=== PATIENT | female | born 1980 | race Caucasian/White ===

== ENCOUNTER 2023-06-03 20:54 | Emergency (ER) | payer OTHER, SELFPAY ==
[2023-06-03 21:11] VITALS: BP 123/87; PULSE 74; RESP 18; TEMP 36.9; O2SAT 100; BMI 31.1
[2023-06-03 22:33] VITALS: BP 115/74
--- NOTE | 2023-06-03 23:07 | ECG_ITS ---
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
--- NOTE | 2023-06-03 23:08 | XR_ITS ---
[facility] [place] [id number] Patient Name: GAL TEJEDA MRN: [id number] date: 1980 Sex: F Assigned Patient Location: ER Current Patient Location: ER Accession/Order Number: [id number] Exam Date: 06/03/2023 23:35 Report Date: 06/04/2023 01:33 At the request of: KELLEY SERRANO Procedure: XR chest 2V XR chest 2V 06/03/2023 11:35 PM EDT CLINICAL INDICATION: Back pain COMPARISON: None. TECHNIQUE: PA and lateral views of the chest. FINDINGS: There are no tubes or implants noted. The cardiomediastinal silhouette and pulmonary vasculature are within normal limits. The lungs are clear. No pneumothorax or pleural effusion. Osseous structures and soft tissues are within normal limits. XR/XR chest 2V IMPRESSION: No acute cardiopulmonary abnormality. Electronically authenticated by: FRENCH SHANE Date: 06/04/2023 01:33
[2023-06-03 23:12] VITALS: PULSE 68; RESP 18
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
[2023-06-03 23:24] LABS: Basophils Percent Auto 0.4 % (0.2-2.0); Eosinophils Absolute Auto 0.1 10^3/uL (0.0-0.7); Eosinophils Percent Auto 1.1 % (0.9-7.0); Hematocrit 38.2 % (36.0-48.0); Hemoglobin 13.2 g/dL (12.0-16.0); Immature Granulocytes Abs Auto 0.01 10^3/uL (0.00-0.03); Immature Granulocytes Pct Auto 0.1 % (0.0-0.5); Lymphocytes Absolute Auto 1.8 10^3/uL (1.2-3.8); Lymphocytes Percent Auto 24.7 % (20.5-60.0); Mean Corpuscular HGB Conc 34.6 g/dL (29.9-35.2); Mean Corpuscular Hemoglobin 33.8 pg (26.7-34.0); Mean Corpuscular Volume 97.7 fL (81.0-99.0); Mean Platelet Volume 8.9 fL (9.5-13.5); Monocytes Absolute Auto 0.5 10^3/uL (0.3-0.8); Monocytes Percent Auto 7.2 % (1.7-12.0); Neutrophils Absolute Auto 4.8 10^3/uL (1.4-6.5); Neutrophils Percent Auto 66.5 % (43.0-75.0); Platelet Count 287 10^3/uL (150-450); Red Blood Count 3.91 10^6/uL (4.20-5.40); Red Cell Distribution Width 12.3 % (11.0-15.0); White Blood Count 7.2 10^3/uL (4.0-11.0)
[2023-06-03 23:41] LABS: Alanine Aminotransferase 26 U/L (14-59); Albumin Globulin Ratio 1.3; Albumin Level 3.9 g/dL (3.4-5.0); Alkaline Phosphatase 107 U/L (46-116); Anion Gap 13.1; Aspartate Amino Transferase 9 U/L (15-37); BUN Creatinine Ratio 13.6; Bilirubin Total 0.5 mg/dL (0.2-1.0); Calcium 8.9 mg/dL (8.5-10.1); Carbon Dioxide 26.3 mmol/L (21.0-32.0); Chloride 103 mmol/L (98-107); Estimated GFR (African America >60 (>=60); Estimated GFR (Non-African Ame 58 (>=60); Globulin 3.1 g/dL; Glucose 132 mg/dL (74-106); Magnesium 2.2 mg/dL (1.8-2.4); Potassium 3.4 mmol/L (3.5-5.1); Sodium 139 mmol/L (136-145); Troponin I High Sensitivity <4.0 pg/mL (4.0-51.3)
[2023-06-03] MEDS: KETOROLAC TROMETHAMINE 30 MG/ML VIAL IVP (23:56)
[2023-06-03] MEDS: 0.9 % SODIUM CHLORIDE 1,000 ML 999 ML IV (23:57)
[2023-06-04 00:12] LABS: D Dimer 0.71 mg/L FEU (<=0.59)
--- NOTE | 2023-06-04 00:13 | CT_ITS ---
[address] [address] Patient Name: GAL TEJEDA MRN: [id number] date: 1980 Sex: F Assigned Patient Location: ER Current Patient Location: ED.MAIN Accession/Order Number: [id number] Exam Date: 06/04/2023 00:33 Report Date: 06/04/2023 02:56 At the request of: KELLEY SERRANO Procedure: CT angio chest EXAM: CT angio chest HISTORY: cp/elevated dimer COMPARISON: Chest x-ray 06/03/2023 TECHNIQUE: Multiple axial views CT angiogram chest after administration of 100 mL Omnipaque 350 IV contrast. Coronal sagittal reformats. MIP and/or similar series performed. 3-D reconstruction of the vasculature. FINDINGS: No evidence for acute pulmonary embolism. Mid ascending thoracic aorta measuring 3.2 cm diameter. No aortic dissection. No enlarged heart size or large pericardial effusion. Central airway is patent. No lung consolidation, large pleural effusions, pneumothorax, or suspicious lung infiltrates. Small hiatal hernia with mild gastroesophageal junction wall thickening. No extraluminal free fluid or free air. No acute bony abnormality. CT/CT angio chest IMPRESSION: No evidence for acute pulmonary embolism. No large pericardial effusion, pleural effusion, or suspicious lung infiltrates. Small hiatal hernia with mild gastroesophageal junction wall thickening. Correlate clinically for sequela of reflux or gastroesophageal wall inflammation. No extraluminal free fluid or free air. Electronically authenticated by: APOORVA MENDEZ Date: 06/04/2023 02:56
[2023-06-04 02:14] VITALS: BP 100/71; O2SAT 99
== END 2023-06-04 03:32 | disposition home or self-care (01) ==
PROVIDERS: Emergency Provider Emergency Medicine
DX: M54.6 Pain in thoracic spine (principal); E86.0 Dehydration; L55.9 Sunburn, unspecified; Z79.899 Other long term (current) drug therapy
CPT/HCPCS: 36415; 71046; 71275; 80053; 83690; 83735; 84484; 85025; 85378; 93005; 96360; 96361; 99285; Q9967

== ENCOUNTER 2023-08-10 19:02 | Emergency (ER) | payer OTHER, SELFPAY ==
[2023-08-10 19:16] VITALS: BP 128/80; PULSE 82; RESP 16; TEMP 36.8; O2SAT 99; BMI 30.1
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
[2023-08-10] MEDS: FLUORESCEIN SODIUM 1 MG STRIP OP (20:20)
[2023-08-10] MEDS: ERYTHROMYCIN OP OINT 0.5% 1 GM TUBE OP (21:06)
== END 2023-08-10 21:15 | disposition home or self-care (01) ==
PROVIDERS: Emergency Provider Emergency Medicine
DX: S05.01XA Injury of conjunctiva and corneal abrasion without foreign body, right eye, initial encounter (principal); Y04.2XXA Assault by strike against or bumped into by another person, initial encounter
CPT/HCPCS: 99283

== ENCOUNTER 2024-01-02 09:46 | Emergency (ER) | payer OTHER, SELFPAY ==
[2024-01-02 09:48] VITALS: BP 110/74; PULSE 65; RESP 16; TEMP 36.8; O2SAT 98; BMI 25.6
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
--- OUTSIDE RECORDS SUMMARY | 2024-01-02 10:14 | XMS_ITS | CCD ---
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 34.0-46.4 [facility] Comment on above: Order Comment: Reaso n for Exam Screening for heart disease Performed By: #### C BC, TSH3 wRFLX, CMP, LIPID ####[address] Hemoglobin (Bld) [Mass/Vol] 12.9 g/dL Normal 11.8-15.4 [facility] Comment on above: Order Comment: Reaso n for Exam Screening for heart disease Performed By: #### C BC, TSH3 wRFLX, CMP, LIPID ####[address] Lymphocytes (Bld) [#/Vol] 1.0 10*3/uL Normal 1.00-4.8 [facility] Comment on above: Order Comment: Reaso n for Exam Screening for heart disease Performed By: #### C BC, TSH3 wRFLX, CMP, LIPID ####[address] Lymphocytes/100 WBC (Bld) 29.1 % Normal . [facility] Comment on above: Order Comment: Reaso n for Exam Screening for heart disease Performed By: #### C BC, TSH3 wRFLX, CMP, LIPID ####[place] [id number] [facility] MCH (RBC) [Entitic mass] 33.5 pg Normal 24.7-34.3 [facility] Comment on above: Order Comment: Reaso n for Exam Screening for heart disease Performed By: #### C BC, TSH3 wRFLX, CMP, LIPID ####[place] [id number] [facility] MCV (RBC) [Entitic vol] 98.9 fL Normal 80-100 [facility] Comment on above: Order Comment: Reaso n for Exam Screening for heart disease Performed By: #### C BC, TSH3 wRFLX, CMP, LIPID ####[facility] [place] [id number] [facility] Mean Corpuscular HGB Conc 33.8 g/dL Normal 32.0-35.0 [facility] Comment on above: Order Comment: Reaso n for Exam Screening for heart disease Performed By: #### C BC, TSH3 wRFLX, CMP, LIPID ####[place] [address] [place] [address] [facility] Monocytes (Bld) [#/Vol] 0.3 10*3/uL Normal 0.0-0.8 [facility] Comment on above: Order Comment: Reaso n for Exam Screening for heart disease Performed By: #### C BC, TSH3 wRFLX, CMP, LIPID ####[place] [address] [place] [id number] [facility] Monocytes/100 WBC (Bld) 7.3 % Normal . [facility] Comment on above: Order Comment: Reaso n for Exam Screening for heart disease Performed By: #### C BC, TSH3 wRFLX, CMP, LIPID ####[place] [id number] [facility] Neutrophils (Bld) [#/Vol] 2.2 10*3/uL Normal 1.8-7.7 [facility] Comment on above: Order Comment: Reaso n for Exam Screening for heart disease Performed By: #### C BC, TSH3 wRFLX, CMP, LIPID ####[place] [address] [place] [phone] [facility] Neutrophils/100 WBC (Bld) 60.8 % Normal . [facility] Comment on above: Order Comment: Reaso n for Exam Screening for heart disease Performed By: #### C BC, TSH3 wRFLX, CMP, LIPID ####[place] [id number] [place] NRBC% 0.0 /100{WBC} Normal 0-0.5 [facility] Comment on above: Order Comment: Reaso n for Exam Screening for heart disease Performed By: #### C BC, TSH3 wRFLX, CMP, LIPID ####[place] [address] [place] [address] [facility] Platelet mean volume (Bld) [Entitic vol] 8.1 fL Normal 6.3-10.7 [facility] Comment on above: Order Comment: Reaso n for Exam Screening for heart disease Performed By: #### C BC, TSH3 wRFLX, CMP, LIPID ####[place] [address] [place] [address] [facility] Platelets (Bld) [#/Vol] 292 10*3/uL Normal 150-450 [facility] Comment on above: Order Comment: Reaso n for Exam Screening for heart disease Performed By: #### C BC, TSH3 wRFLX, CMP, LIPID ####[place] [id number] [facility] RBC (Bld) [#/Vol] 3.86 10*6/uL Normal 3.60-5.00 [facility] Comment on above: Order Comment: Reaso n for Exam Screening for heart disease Performed By: #### C BC, TSH3 wRFLX, CMP, LIPID ####[address] [address] [facility] WBC (Bld) [#/Vol] 3.6 10*3/uL Low 3.8-11.6 [facility] Comment on above: Order Comment: Reaso n for Exam Screening for heart disease Performed By: #### C BC, TSH3 wRFLX, CMP, LIPID ####[place] [address] [place] [address] [facility] Comprehensive Metabolic Pane ryan 02-24-2023 Albumin [Mass/Vol] 4.0 g/dL Normal 3.5-5.7 [facility] Comment on above: Order Comment: Reaso n for Exam Screening for heart disease Reason for Exam Annual physical exam;Screening for heart disease disease;Anxiety Performed By: #### C BC, TSH3 wRFLX, CMP, LIPID ####[place] [address] [place] [address] [facility] Albumin/Globulin [Mass ratio] 1.7 {ratio} Normal [facility] Comment on above: Order Comment: Reaso n for Exam Screening for heart disease Reason for Exam Annual physical exam;Screening for heart disease disease;Anxiety Performed By: #### C BC, TSH3 wRFLX, CMP, LIPID ####[place] [address] [place] [address] [facility] ALP [Catalytic activity/Vol] 83 U/L Normal 34-104 [facility] Comment on above: Order Comment: Reaso n for Exam Screening for heart disease Reason for Exam Annual physical exam;Screening for heart disease disease;Anxiety Performed By: #### C BC, TSH3 wRFLX, CMP, LIPID ####[address] [address] [facility] ALT [Catalytic activity/Vol] 20 U/L Normal 7-52 [facility] Comment on above: Order Comment: Reaso n for Exam Screening for heart disease Reason for Exam Annual physical exam;Screening for heart disease disease;Anxiety Performed By: #### C BC, TSH3 wRFLX, CMP, LIPID ####[address] [address] [facility] Anion gap [Moles/Vol] 10.8 mmol/L Normal 6.0-15.0 [facility] Comment on above: Order Comment: Reaso n for Exam Screening for heart disease Reason for Exam Annual physical exam;Screening for heart disease disease;Anxiety Performed By: #### C BC, TSH3 wRFLX, CMP, LIPID ####[address] [address] [facility] AST [Catalytic activity/Vol] 15 U/L Normal 13-39 [facility] Comment on above: Order Comment: Reaso n for Exam Screening for heart disease Reason for Exam Annual physical exam;Screening for heart disease disease;Anxiety Performed By: #### C BC, TSH3 wRFLX, CMP, LIPID ####[address] [address] [facility] Bilirubin [Mass/Vol] 0.7 mg/dL Normal 0.3-1.0 [facility] Comment on above: Order Comment: Reaso n for Exam Screening for heart disease Reason for Exam Annual physical exam;Screening for heart disease disease;Anxiety Performed By: #### C BC, TSH3 wRFLX, CMP, LIPID ####[place] [address] [place] [address] [facility] Calcium [Mass/Vol] 8.6 mg/dL Normal 8.6-10.3 [facility] Comment on above: Order Comment: Reaso n for Exam Screening for heart disease Reason for Exam Annual physical exam;Screening for heart disease disease;Anxiety Performed By: #### C BC, TSH3 wRFLX, CMP, LIPID ####[place] [address] [place] [address] [facility] Chloride [Moles/Vol] 105 mmol/L Normal 98-107 [facility] Comment on above: Order Comment: Reaso n for Exam Screening for heart disease Reason for Exam Annual physical exam;Screening for heart disease disease;Anxiety Performed By: #### C BC, TSH3 wRFLX, CMP, LIPID ####[address] [address] [facility] CO2 [Moles/Vol] 25.4 mmol/L Normal 21.0-31.0 [facility] Comment on above: Order Comment: Reaso n for Exam Screening for heart disease Reason for Exam Annual physical exam;Screening for heart disease disease;Anxiety Performed By: #### C BC, TSH3 wRFLX, CMP, LIPID ####[address] [address] [facility] Creatinine [Mass/Vol] 0.96 mg/dL Normal 0.60-1.20 [facility] Comment on above: Order Comment: Reaso n for Exam Screening for heart disease Reason for Exam Annual physical exam;Screening for heart disease disease;Anxiety Performed By: #### C BC, TSH3 wRFLX, CMP, LIPID ####[address] [address] [facility] GFR/1.73 sq M.predicted MDRD (S/P/Bld) [Vol rate/Area] mL/min/{1.73_m2} Normal [facility] Comment on above: Order Comment: Reaso n for Exam Screening for heart disease Reason for Exam Annual physical exam;Screening for heart disease disease;Anxiety Performed By: #### C BC, TSH3 wRFLX, CMP, LIPID ####[facility] [place] [address] [facility] Globulin (S) [Mass/Vol] 2.3 g/dL Normal [facility] Comment on above: Order Comment: Reaso n for Exam Screening for heart disease Reason for Exam Annual physical exam;Screening for heart disease disease;Anxiety Performed By: #### C BC, TSH3 wRFLX, CMP, LIPID ####[place] [address] [place] [address] [facility] Glucose [Mass/Vol] 84 mg/dL Normal 70-100 [facility] Comment on above: Order Comment: Reaso n for Exam Screening for heart disease Reason for Exam Annual physical exam;Screening for heart disease disease;Anxiety Result Comment: [facility] Glucose Reference Range is dependent on time and content of last meal. Glucose of more than 200 mg/dL in a nonstressed, ambulatory subject supports the diagnosis of Diabetes Mellitus. ADA recommended reference range Performed By: #### C BC, TSH3 wRFLX, CMP, LIPID ####[place] [address] [place] [address] [facility] Potassium [Moles/Vol] 4.2 mmol/L Normal 3.5-5.1 [facility] Comment on above: Order Comment: Reaso n for Exam Screening for heart disease Reason for Exam Annual physical exam;Screening for heart disease disease;Anxiety Performed By: #### C BC, TSH3 wRFLX, CMP, LIPID ####[place] [address] [place] [address] [facility] Protein [Mass/Vol] 6.3 g/dL Low 6.4-8.9 [facility] Comment on above: Order Comment: Reaso n for Exam Screening for heart disease Reason for Exam Annual physical exam;Screening for heart disease disease;Anxiety Performed By: #### C BC, TSH3 wRFLX, CMP, LIPID ####[facility] [place] [id number] [facility] Sodium [Moles/Vol] 137 mmol/L Normal 136-145 [facility] Comment on above: Order Comment: Reaso n for Exam Screening for heart disease Reason for Exam Annual physical exam;Screening for heart disease disease;Anxiety Performed By: #### C BC, TSH3 wRFLX, CMP, LIPID ####[facility] [place] [id number] [facility] Urea nitrogen [Mass/Vol] 19 mg/dL Normal 7-25 [facility] Comment on above: Order Comment: Reaso n for Exam Screening for heart disease Reason for Exam Annual physical exam;Screening for heart disease disease;Anxiety Performed By: #### C BC, TSH3 wRFLX, CMP, LIPID ####[place] [id number] Creatinine [Mass/volume] in Serum or PlasmaOrdered By: Aris Son on 02-24-2023 Creatinine [Mass/Vol] 0.96 mg/dL 0.60-1.20 [facility] Eosinophils Auto (Bld) [#/Vo l]Ordered By: Aris Son on 02-24-2023 Eosinophils (Bld) [#/Vol] 0.1 10*3/uL 0.0-0.45 [facility] Eosinophils/100 WBC Auto (Bl d)Ordered By: Aris Son on 02-24-2023 Eosinophils/100 WBC (Bld) 2.1 % . [facility] Erythrocyte distribution wid th Auto (RBC) [Ratio]Ordered By: Aris Son on 02-24-2023 Erythrocyte distribution width (RBC) [Ratio] 13.4 % 11.9-15.3 [facility] Globulin Calc (S) [Mass/Vol] Ordered By: Aris Son on 02-24-2023 Globulin (S) [Mass/Vol] 2.3 g/dL [facility] Glucose [Mass/volume] in Ser um or PlasmaOrdered By: Aris Son on 02-24-2023 Glucose [Mass/Vol] 84 mg/dL 70-100 [facility] Comment on above: ADA recommended refe rence rangeRandom Glucose Reference Range is dependent on time and content of last meal. Glucose of more than 200 mg/dL in a nonstressed, ambulatory subject supports the diagnosis of Diabetes Mellitus. Hematocrit Auto (Bld) [Volum e fraction]Ordered By: Aris Son on 02-24-2023 Hematocrit (Bld) [Volume fraction] 38.2 % 34.0-46.4 [facility] Hemoglobin [Mass/volume] in BloodOrdered By: Aris Son on 02-24-2023 Hemoglobin (Bld) [Mass/Vol] 12.9 g/dL 11.8-15.4 [facility] Leukocytes [#/volume] correc debi for nucleated erythrocytes in Blood by Automated counOrdered By: Aris Son on 02-24-2023 WBC corrected for nucl RBC Auto (Bld) [#/Vol] 3.6 10*3/uL 3.8-11.6 [facility] Lipid Panelon 02-24-2023 Cholesterol [Mass/Vol] 161 mg/dL Normal 140-200 [facility] Comment on above: Order Comment: Reaso n for Exam Screening for heart disease Reason for Exam Annual physical exam;Screening for heart disease disease;Anxiety Result Comment: Chol less than 200 mg/dl low risk Chol 201-239 mg/dl borderline risk Chol 240 mg/dl and greater high risk Performed By: #### C BC, TSH3 wRFLX, CMP, LIPID ####[facility] [id number] [place] [id number] [facility] Cholesterol in HDL [Mass/Vol] 56 mg/dL Normal 35-85 [facility] Comment on above: Order Comment: Reaso n for Exam Screening for heart disease Reason for Exam Annual physical exam;Screening for heart disease disease;Anxiety Result Comment: HDL CHOL ATP-III CLASSIFICATION Cardiovascular Risk HDL > or equal to 60 mg/dL LOW HDL < 40 mg/dL HIGH Performed By: #### C BC, TSH3 wRFLX, CMP, LIPID ####[facility] [id number] [place] [id number] [facility] Cholesterol.total/Choles terol in HDL [Mass ratio] 2.9 {ratio} Normal <5.0 [facility] Comment on above: Order Comment: Reaso n for Exam Screening for heart disease Reason for Exam Annual physical exam;Screening for heart disease disease;Anxiety Performed By: #### C BC, TSH3 wRFLX, CMP, LIPID ####[facility] [id number] LDL Cholesterol,Calculated 85 mg/dL Normal 0-100 [facility] Comment on above: Order Comment: Reaso n for Exam Screening for heart disease Reason for Exam Annual physical exam;Screening for heart disease disease;Anxiety Result Comment: LDL ATP III CLASSIFICATION LDL less than 100 mg/dL Optimal LDL 100-129 mg/dL Near or above optimal LDL 130-159 mg/dL Borderline high LDL 160-189 mg/dL High LDL greater than 189 mg/dL Very high Performed By: #### C BC, TSH3 wRFLX, CMP, LIPID ####[place] [id number] Triglyceride w/Reflex 99 mg/dL Normal 0-149 [facility] Comment on above: Order Comment: Reaso n for Exam Screening for heart disease Reason for Exam Annual physical exam;Screening for heart disease disease;Anxiety Result Comment: TRIG ATP III CLASSIFICATION TRIG less than 150 mg/dL Normal TRIG 150-199 mg/dL Borderline high TRIG 200-500 mg/dL High TRIG greater than 500 mg/dL Very high Standard traceable to the Center for Disease Conrtrol and Prevention (CDC) test method. Performed By: #### C BC, TSH3 wRFLX, CMP, LIPID ####[facility] [id number] VLDL CHOLESTEROL 19 mg/dL Normal [facility] Comment on above: Order Comment: Reaso n for Exam Screening for heart disease Reason for Exam Annual physical exam;Screening for heart disease disease;Anxiety Performed By: #### C BC, TSH3 wRFLX, CMP, LIPID ####[facility] [id number] Lymphocytes Auto (Bld) [#/Vo l]Ordered By: Aris Son on 02-24-2023 Lymphocytes (Bld) [#/Vol] 1.0 10*3/uL 1.00-4.8 [facility] Lymphocytes/100 WBC Auto (Bl d)Ordered By: Aris Son on 02-24-2023 Lymphocytes/100 WBC (Bld) 29.1 % . [facility] MCH Auto (RBC) [Entitic mass ]Ordered By: Aris Son on 02-24-2023 MCH (RBC) [Entitic mass] 33.5 pg 24.7-34.3 [facility] MCHC Auto (RBC) [Mass/Vol]Or dered By: Aris Son on 02-24-2023 MCHC (RBC) [Mass/Vol] 33.8 g/dL 32.0-35.0 [facility] MCV Auto (RBC) [Entitic vol] Ordered By: Aris Son on 02-24-2023 MCV (RBC) [Entitic vol] 98.9 fL 80-100 [facility] Monocytes Auto (Bld) [#/Vol] Ordered By: Aris Son on 02-24-2023 Monocytes (Bld) [#/Vol] 0.3 10*3/uL 0.0-0.8 [facility] Monocytes/100 WBC Auto (Bld) Ordered By: Aris Son on 02-24-2023 Monocytes/100 WBC (Bld) 7.3 % . [facility] Neutrophils Auto (Bld) [#/Vo l]Ordered By: Aris Son on 02-24-2023 Neutrophils (Bld) [#/Vol] 2.2 10*3/uL 1.8-7.7 [facility] Neutrophils/100 WBC Auto (Bl d)Ordered By: rAis Son on 02-24-2023 Neutrophils/100 WBC (Bld) 60.8 % . [facility] No Panel InformationOrdered By: Aris Son on 02-24-2023 Estimated GFR (CKD-EPI) > 60.0 mL/Min [facility] Creatinine Clearance (Chem N/A [facility] Nucleated erythrocytes [Pres ence] in Blood by Automated countOrdered By: Aris Son on 02-24-2023 Nucleated RBC Auto Ql (Bld) 0.0 /100{WBC} 0-0.5 [facility] Platelet mean volume Auto (B ld) [Entitic vol]Ordered By: Aris Son on 02-24-2023 Platelet mean volume (Bld) [Entitic vol] 8.1 fL 6.3-10.7 [facility] Platelets Auto (Bld) [#/Vol] Ordered By: Aris Son on 02-24-2023 Platelets (Bld) [#/Vol] 292 10*3/uL 150-450 [facility] Potassium [Moles/volume] in Serum or PlasmaOrdered By: Aris Son on 02-24-2023 Potassium [Moles/Vol] 4.2 mmol/L 3.5-5.1 [facility] Protein [Mass/volume] in Ser um or PlasmaOrdered By: Aris Son on 02-24-2023 Protein [Mass/Vol] 6.3 g/dL 6.4-8.9 [facility] RBC Auto (Bld) [#/Vol]Ordere d By: Aris Son on 02-24-2023 RBC (Bld) [#/Vol] 3.86 10*6/uL 3.60-5.00 [facility] Serum or plasma albumin/glob ulin mass ratioOrdered By: Aris Son on 02-24-2023 Albumin/Globulin [Mass ratio] 1.7 {ratio} [facility] Serum or plasma anion gap de terminationOrdered By: Aris Son on 02-24-2023 Anion gap [Moles/Vol] 10.8 mmol/L 6.0-15.0 [facility] Serum or plasma high density lipoprotein (HDL) cholesterol measurementOrdered By: Aris Son on 02-24-2023 Cholesterol in HDL [Mass/Vol] 56 mg/dL 35-85 [facility] Comment on above: HDL CHOL ATP-III CLA SSIFICATION Cardiovascular RiskHDL > or equal to 60 mg/dL LOWHDL < 40 mg/dL HIGH Serum or plasma total choles terol/high density lipoprotein (HDL) cholesterol mass ratOrdered By: Aris Son on 02-24-2023 Cholesterol.total/Choles terol in HDL [Mass ratio] 2.9 {ratio} <5.0 [facility] Sodium [Moles/volume] in Ser um or PlasmaOrdered By: Aris Son on 02-24-2023 Sodium [Moles/Vol] 137 mmol/L 136-145 [facility] Thyroid Stim Hormone w/Rflxo n 02-24-2023 Thyroid Stim Hormone w/Rflx 1.70 u[iU]/mL Normal 0.45-5.33 [facility] Comment on above: Order Comment: Reaso n for Exam Screening for heart disease Reason for Exam Annual physical exam;Screening for heart disease disease;Anxiety Result Comment: PERF ORMED BY: [facility] [address] [place] [id number] PATHOLOGIST PUBLIC [employer] WORKER MARNIE GREGORY M.D. Performed By: #### C BC, TSH3 wRFLX, CMP, LIPID ####[facility] [id number] [place] [address] [facility] Thyrotropin [Units/volume] i n Serum or PlasmaOrdered By: Aris Son on 02-24-2023 TSH Qn 1.70 m[IU]/L 0.45-5.33 [facility] Triglyceride [Mass/volume] i n Serum or PlasmaOrdered By: Aris Son on 02-24-2023 Triglyceride [Mass/Vol] 99 mg/dL 0-149 [facility] Comment on above: TRIG ATP III CLASSIF ICATIONTRIG less than 150 mg/dL NormalTRIG 150-199 mg/dL Borderline highTRIG 200-500 mg/dL High TRIG greater than 500 mg/dL Very highStandard traceable to the Center for Disease Conrtrol and Prevention (CDC) test method. Urea nitrogen [Mass/volume] in Serum or PlasmaOrdered By: Aris Son on 02-24-2023 Urea nitrogen [Mass/Vol] 19 mg/dL 7- [facility] WBC Auto (Bld) [#/Vol]Ordere d By: Aris Son on 02-24-2023 WBC (Bld) [#/Vol] 3.6 10*3/uL 3.8-11.6 [facility] COVID-19 PCRon 08-08-2020 SARS-CoV-2, JULIO Not Detected Normal Not Detected [facility] Comment on above: Result Comment: This nucleic acid amplification test was developed and its performance characteristics determined by [employer]. Nucleic acid amplification tests include PCR and TMA. This test has not been FDA cleared or approved. This test has been authorized by FDA under an Emergency Use Authorization (EUA). This test is only authorized for the duration of time the declaration that circumstances exist justifying the authorization of the emergency use of in vitro diagnostic tests for detection of SARS-CoV-2 virus and/or diagnosis of COVID-19 infection under section 564(b)(1) of the Act, 21 U.S.C. 360bbb-3(b) (1), unless the authorization is terminated or revoked sooner. When diagnostic testing is negative, the possibility of a false negative result should be considered in the context of a patient's recent exposures and the presence of clinical signs and symptoms consistent with COVID-19. An individual without symptoms of COVID-19 and who is not shedding SARS-CoV-2 virus would expect to have a negative (not detected) result in this assay. Performed By: #### C VDPCR #### [facility] [address] [place] [address] Benito Christopher HEP B SURFACE ANTIGEN SCREEN on 07-29-2020 HBsAg Screen Negative Normal Negative [facility] Comment on above: Performed By: #### H BSANS #### [facility] [address] [place] [address] Benito Christopher HEPATITIS B SURFACE ANTIBODY , QUANTon 04-18-2020 Hepatitis B Surf AB Quant 5.5 mIU/mL Critically low Immunity>9.9 [facility] Comment on above: Result Comment: Stat us of Immunity Anti-HBs Level Inconsistent with Immunity 0.0 - 9.9 Consistent with Immunity >9.9 Performed By: #### H EPBSRF #### [facility] [address] [place] [address] Benito Christopher SLEEP STUDYon 01-01-2020 SLEEP STUDY SLEEP STUDY Ordering Physician: Dr. Castelan Procedure Date: 01-01-20 CLINICAL HISTORY: This is a 39 year-old female who is 62 tall, weighs 165 pounds with a body mass index of 30.2, who was referred for a home sleep study due to snoring, fatigue, witnessed episodes of apnea, and daytime somnolence. RECORDING TIME: The total recording time was 8 hours and 24 minutes, total evaluation time was 8 hours and 12 minutes. COMPREHENSIVE VENTILATORY MONITORING: The patient had 10 apneas and 45 hypopneas with an apnea/hypopnea index of 6.7 per hour. The average oxygenation while was 95% with a minimum oxygen saturation down to 82%. SNORING DATA: The patient had 105 snoring occurrences. EKG MONITORING: The mean heart rate during wakefulness was 71 bpm, minimum pulse rate was 50 bpm, maximum pulse rate was 101 bpm. IMPRESSION: 1. This patient does meet criteria for a very mild obstructive sleep apnea and may benefit from CPAP titration vs AutoPap therapy vs aggressive weight loss measures. 2. This patient would benefit from treatment of any other coexisting medical condition including obesity, insomnia, anxiety or depression. 3. Please correlate clinically. Normal [facility] Vital Signs Date Time Vital Sign Value Performing Clinician Facility 11-13-2023 09:00-0500 Body height 157.48 cm Devyn Daniels Other [facility] Other 11-13-2023 09:00-0500 Body mass index (BMI) [Ratio] 31.09 kg/m2 Devyn Daniels Other [facility] Other 11-13-2023 09:00-0500 Body temperature 97.1 [degF] Devyn Daniels Other [facility] Other 11-13-2023 09:00-0500 Body weight 77.11 kg Devyn Daniels Other [facility] Other 11-13-2023 09:00-0500 Diastolic blood pressure 62 mm[Hg] Devyn Daniels Other [facility] Other 11-13-2023 09:00-0500 SaO2% (BldA) [Mass fraction] 98 % Devyn Daniels Other [facility] Other 11-13-2023 09:00-0500 Systolic blood pressure 100 mm[Hg] Devyn Buestevanrer Other [facility] Other 08-01-2023 09:15-0400 Body height 157.48 cm Devyn Alvarezrer Other [facility] Other 08-01-2023 09:15-0400 Body mass index (BMI) [Ratio] 31.09 kg/m2 Devyn Alvarezrer Other [facility] Other 08-01-2023 09:15-0400 Body temperature 97.3 [degF] Devyn Rodriguezestevanrer Other [facility] Other 08-01-2023 09:15-0400 Body weight 77.11 kg Devyn Alvarezrelorena Other [facility] Other 08-01-2023 09:15-0400 Diastolic blood pressure 68 mm[Hg] Devyn Buehrer Other [facility] Other 08-01-2023 09:15-0400 SaO2% (BldA) [Mass fraction] 99 % Devyn Alvarezrer Other [facility] Other 08-01-2023 09:15-0400 Systolic blood pressure 114 mm[Hg] Devyn Buehrer Other [facility] Other Encounters Encounter Date Encounter Type Care Provider Facility Start: 12-20-2023 End: 12-20-2023 ambulatory Devyn Daniels Facility:[facility] Start: 12-15-2023 End: 12-15-2023 Emergency department patient visit Luiz Farrell Facility:[facility] Start: 11-13-2023 End: 11-13-2023 ambulatory Devyn Daniels Other [facility] Other Start: 11-13-2023 Office outpatient vi sit 25 minutes Devyn Daniels [facility] V[facility] Surgery Start: 10-10-2023 End: 10-10-2023 ambulatory Devyn Daniels Facility:[facility] Start: 10-10-2023 End: 10-10-2023 ambulatory Services [facility] Work Phone: [facility] Work Phone: Start: 10-10-2023 End: 10-10-2023 Patient encounter procedure Services [facility] Work Phone: [facility]-Ultrasound [facility] Start: 10-06-2023 (EVLT) EVLT saphenou s vein ablation Devyn Franciscolorena [facility] Vascular Surgery Start: 10-06-2023 End: 10-06-2023 ambulatory Devyn Daniels Other [facility] Other Start: 08-01-2023 End: 08-01-2023 ambulatory Devyn Daniels Other [facility] Other Start: 08-01-2023 Office outpatient vi sit 25 minutes Devyn Franciscolorena [facility] Vascular Surgery Start: 07-27-2023 End: 07-27-2023 ambulatory Lisset Orellana Facility:[facility] Start: 07-27-2023 End: 07-27-2023 ambulatory Services [facility] Work Phone: [facility] Work Phone: Start: 07-27-2023 End: 07-27-2023 Patient encounter procedure Services Family [facility] Work Phone: [facility]-Ultrasound [facility] [place] Work Phone: Start: 02-24-2023 End: 02-24-2023 ambulatory Ivan Guerrero Facility:[facility] Start: 02-24-2023 End: 02-24-2023 ambulatory Services [employer] Work Phone: [facility] Work Phone: Start: 02-24-2023 End: 02-24-2023 Departed Referred Services [employer] Work Phone: [facility] Start: 12-14-2020 Patient encounter procedure CARMELO HARDING Facility:[facility] Start: 08-07-2020 End: 08-08-2020 Patient encounter procedure DOCTOR MISC Facility:[facility] Start: 07-28-2020 End: 07-28-2020 Patient encounter procedure CARMELO HARDING Facility:[facility] Start: 04-16-2020 End: 04-16-2020 Patient encounter procedure DOCTOR MISC Facility:[facility] Start: 01-01-2020 End: 01-02-2020 Patient encounter procedure DELGADO CARLOS Facility:[facility] Start: 07-13-2004 Evaluation and management of inpatient Services [employer] Work Phone: [facility] Work Phone: Procedures Date Procedure Procedure Detail Performing Clinician Start: 07-27-2023 Duplex scan of lower limb veins Services [facility] [employer] Phone: Plan of Treatment Date Care Activity Detail Author Start: 10-10-2023 Duplex scan of lower limb veins US venous duplex [facility] Start: 10-10-2023 US Lower extremity v ein - left [facility] Start: 07-27-2023 Duplex scan of lower limb veins US venous duplex LE [facility] Start: 07-27-2023 US Lower extremity v ein - bilateral [facility] Payers Date Payer Category Payer Self-pay [id number] 2023 Unknown [id number] 1980 Unknown [id number] 2.16.84 [id number] 1980 Unknown [id number] 2.16.84 [id number] 1980 Unknown [id number] 2.16.84 [id number] 1980 Unknown [id number] 2.16.84 [id number] 1980 Unknown [id number] 2.16.84 [id number] 1959 Self-pay [id number] 1959 Unknown [id number] Unknown MMO [id number] Unknown [employer] [id number] Unknown [id number] 2.16.8 [id number] Unknown [id number] 2.16.8 [id number] Unknown [id number] 2.16.8 [id number] Unknown [id number] 2.16.8 [id number] Unknown [id number] 2.16.8 [id number] Social History Date Type Detail Facility Start: 01-17-2019 End: 01-17-2019 Tobacco smoking status NVIS Ex-smoker (finding) [facility] Start: 1980 Sex Assigned At Female F [facility] Sex Assigned At Sex Assigned At Bir th [facility] Other Evaluation note 11-13-2023 Note Date & Type Note Facility 11-13-2023 Evaluation note Encounter Date Diagnosis Assessment Notes Oct, Symptomatic varicose veins of both lower extremities (ICD-10 - I83.893) Oct, Other Symptomatic varicose veins She had a good outcome after closure of her left greater saphenous vein. We will proceed with laser ablation of the right greater saphenous vein. Following that she will likely require some sessions of sclerotherapy for the venous congestion present at both medial ankles. She understands and agrees with that plan. [facility] Other Evaluation note 08-01-2023 Note Date & Type Note Facility 08-01-2023 Evaluation note Encounter Date Diagnosis Assessment Notes Jul, Varicose veins of bilateral lower extremities with other complications (ICD-10 - I83.893) Jul, Other Bilateral venous insufficiency with painful varicose veins We discussed options for management in detail. We will begin with a left endovenous laser ablation for symptom relief of her severely incompetent left greater saphenous vein. If she does well with that side we will treat the right saphenous vein in a similar fashion. It is quite likely that she will require sclerotherapy for the extensive secondary varicosities along the pretibial areas bilaterally. [facility] Other Evaluation note Note Date & Type Note Facility Evaluation note No assessment information availa [facility] Work Phone: Evaluation note Note Date & Type Note Facility Evaluation note No Information [employer] Other History general Narrative - Reported Note Date & Type Note Facility History general Narrative - Reported Type Medical History Migraine Medical History Depression Hospitalization History child Hospitalization History DEPRESSION AT [facility] 2019 [facility] Other Summary Purpose Family History No Family History Records FoundNo Family History Records Found Advance Directives No Advanced Directives Records Found Advance Directive Response Recorded Date/ Time Advance Directives No January 16 11:38am Advance Directive Response Recorded Date/ Time Advance Directives No January 16 10:38am Chief Complaint and Reason for Visit Chief Complaint ^Iup Annual physical exam;Screening for heart disease A Chief Complaint ^Iup i83.813 Chief Complaint ^Iup i83.813 i83.812 s/p evlt Additional Source Comments INFORMATION SOURCE (unrecogn ized section and content) DATE CREATED AUTHOR 10/27/2020 [facility] DATE CREATED AUTHOR 'S ORGANIZ ATION 12/31/2023 [facility] Care Teams (unrecognized sec tion and content) Team Status: Active Member Role Status Dates Services [facility] Primary Care Provider Active Team Status: Active Member Role Status Dates Rey Pearl , DO Attending Provider Active Team Status: Inactive Member Role Status Dates [facility] Primary Care Provider Active Ivan Guerrero DO Attending Provider Active Team Status: Inactive Member Role Status Dates [facility] Primary Care Provider Active MARIE Kramer Attending Provider Active Team Status: Inactive Member Role Status Dates [facility] Primary Care Provider Active Devyn Daniels MD Attending Provider Active Goals (unrecognized section and content) Goals may be documented in a n alternate sectionGoals may be documented in an alternate sectionNo InformationGoals may be documented in an alternate sectionNo InformationNo Information REASON FOR VISIT (unrecogniz ed section and content) GO OVER ULTRASOUND DONE AT [facility] 07/27/23, Painful varicose veinsEVLT LEFT LEG FIRST4 WK EVLT, Follow-up varicose veins FOR RECORDS PERTAINING TO PATIENTS WHO ARE OR HAVE BEEN ENROLLED IN A CHEMICAL DEPENDENCY/SUBSTANCEABUSE PROGRAM, SOME INFORMATION MAY BE OMITTED. This clinical summary was aggregated from multiple sources. Caution should be exercised in using it in the provision of clinical care. This summary normalizes information from multiple sources, and as a consequence, information in this document may materially change the coding, format and clinical context of patient data. In addition, data may be omitted in some cases. CLINICAL DECISIONS SHOULD BE BASED ON THE PRIMARY CLINICAL RECORDS. [employer] provides no warranty or guarantee of the accuracy or completeness of information in this document.
[2024-01-02] MEDS: ACETAMINOPHEN 325 MG TABLET 650 MG PO (10:17)
== END 2024-01-02 10:21 | disposition home or self-care (01) ==
PROVIDERS: Emergency Provider Emergency Medicine
DX: S00.83XA Contusion of other part of head, initial encounter (principal); W50.0XXA Accidental hit or strike by another person, initial encounter
CPT/HCPCS: 99282

== ENCOUNTER 2024-01-31 09:46 | Outpatient (RCR) | payer OTHER, SELFPAY | END 2024-03-19 14:56 | disposition home or self-care (01) | LOC: PT 09:46 | PROVIDERS: Visit Provider Nurse Practitioner Family | DX: S09.8XXD Other specified injuries of head, subsequent encounter (principal) | CPT/HCPCS: 97110; 97112; 97140; 97162 ==

== ENCOUNTER 2024-03-27 07:34 | Outpatient (OUT) | payer OTHER, SELFPAY ==
--- NOTE | 2024-03-27 07:37 | MR_ITS ---
The [address] [address] Patient Name: GAL TEJEDA MRN: [id number] date: 1980 Sex: F Assigned Patient Location: MRI Current Patient Location: MRI Accession/Order Number: [id number] Exam Date: 03/27/2024 07:45 Report Date: 03/27/2024 08:36 At the request of: CARMELO HARDING Procedure: MR head/brain wo con MR head/brain wo con, 03/27/2024 7:45 AM EDT INDICATION: Unspecified Injury To The Head S09.90XA COMPARISON: There is no appropriate prior study for comparison. TECHNIQUE: Multiplanar, multisequential MRI images of brain were obtained without injection of contrast. FINDINGS: The cerebral sulci as well as ventricular system are appropriate for age. There is no restricted diffusion. There is no intracranial mass, mass effect, midline shift, intra or extra-axial fluid collection or large hemorrhage. Normal flow-void in the intracranial vessels is noted. The visualized portions of orbits, mastoid air cells as well as paranasal sinuses are unremarkable. MR/MR head/brain wo con IMPRESSION: Normal MRI of the head. Electronically authenticated by: DANNY ZAVALA Date: 03/27/2024 08:36
--- OUTSIDE RECORDS SUMMARY | 2024-03-27 07:37 | XMS_ITS | CCD ---
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 Name Role Phone MISC, DOCTOR Primary Care Unavailable MEAGHAN, CARMELO Consulting Unavailable MEAGHAN, CARMELO Admitting Unavailable MEAGHAN, CARMELO Attending Unavailable DELGADO GONZALEZ Admitting Unavailable CARLOS, DELGADO Attending Unavailable DELGADO GONZALEZ Consulting Unavailable MEAGHAN, CARMELO Attending Unavailable [facility] Care Unava ilable MEAGHAN, CARMELO Admitting Unavailable MISC, DOCTOR Attending Unavailable MISC, DOCTOR Consulting Unavailable MISC, DOCTOR Admitting Unavailable [facility] Primary Care Unava ilable MEAGHAN, CARMELO Attending Unavailable MEAGHAN, CARMELO Consulting Unavailable MEAGHAN, CARMELO Admitting Unavailable DO Rey Pearl Attending Provider [phone] [facility] Primary Care Provider DO Ivan Guerrero Attending Provider [facility] Primary Care Provider MARIE Orellana Attending Provider Devyn Daniels Unavailable DO Rey Pearl Attending Provider [facility] Primary Care Provider MARIE Orellana Attending Provider MD Devyn Daniels Attending Provider Ivan Guerrero Admitting Unavailable Ivan Guerrero Attending Unavailable [facility], Services Primary Care Unavaila Devyn Galvez Admitting Unavailable Devyn Daniels Attending Unavailable [facility], Services Primary Care Unavaila Lisset Mak Admitting Unavailable Lisset Orellana Attending Unavailable [facility] Primary Care Unavaila ble Tupa, Luiz M Attending Unavailable Luiz Farrell Admitting Unavailable [facility] Primary Care Unavail Devyn Galvez Admitting Unavailable Devyn Daniels Attending Unavailable [facility] Provider MD Devyn Daniels Attending Provider DO Luiz Farrell Emergency Provider Allergies Allergy Classification Reported Allergen(s) Allergy Type Date of Onset Reaction(s) Facility (2 sources) Sulfonamides (Antibiotic) Drug allergy (disorder) [facility] Repository (5 sources) Sulfonamides (Antibiotic); Translations: [Sulfa (Sulfonamide Antibiotics)] Allergy to substance 01-17-20 [facility] (3 sources) Sulfacet-Sulfur [employer] Drug allergy [employer] Other (2 sources) Sulfacetamide Drug Allergy 11-13-19 [facility] Repository (2 sources) Sulfur Drug Allergy 11-13-19 [facility] Repository Medications Current Medications Medication Drug Class(es) Dates Sig (Normalized) Sig (Original) Compression stockings, 20-30mmHg, thigh 20-30mmHg (2 sources) Start: 08-23-2023 Compression stockings, 20-30mmHg, thigh 20-30mmHg 1 externally daily as directed for 30 days Aug, Active ibuprofen 400 mg oral tablet (4 sources) Nonsteroidal Anti-inflammatory Drug Start: 01-16-2019 take 400 mg by mouth every four to six hours Ibuprofen Active 400 MG PO EVERY 4-6 HOURS January 16, 2019 12:00am SUMAtriptan 50 mg oral tablet (4 sources) Serotonin-1b and Serotonin-1d Receptor Agonist Start: 12-15-2023 take 4 tablets by mouth every twenty-four hours Sumatriptan Succinate (Imitrex) 50 mg tablet Active 50 MG PO EVERY 2-4 HOURS December 15, 2023 1:00am do not exceed 4 doses per 24 hrs take 1 tablet by sanjuanita every two hours as needed, then take 1 tablet by mouth once daily as needed Imitrex 50 MG 1 tablet at least 2 hours between doses as needed Orally Once a day Active Completed/Discontinued Medications Medication Drug Class(es) Dates Sig (Normalized) Sig (Original) busPIRone hydrochloride 7.5 mg oral tablet (4 sources) Start: 01-16-2019 End: 01-01-2024 take 7.5 mg by mouth twice daily Buspirone Discontinued 7.5 MG PO Twice daily January 16, 2019 12:00am January 01, 2024 9:23am cholecalciferol 0.025 mg oral tablet (4 sources) Vitamin D Start: 01-21-2019 End: 01-01-2024 take 2 tablets by mouth once daily Cholecalciferol (Vitamin D3) (Vitamin D3) 1,000 unit Tablet Discontinued 2000 UNIT PO Daily 14 14 January 21, 2019 12:00am January 01, 2024 9:23am ferrous sulfate 325 mg oral tablet (4 sources) Start: 01-16-2019 End: 01-01-2024 take 1 tablet by mouth once daily Ferrous Sulfate (Iron) 325 mg (65 mg iron) Tablet Discontinued 325 MG PO Daily January 16, 2019 12:00am January 01, 2024 9:23am FLUoxetine 20 mg oral capsule (8 sources) Serotonin Reuptake Inhibitor Start: 01-21-2019 End: 01-01-2024 take 40 mg by mouth once daily Fluoxetine Discontinued 40 MG PO Daily 14 14 January 21, 2019 12:00am January 01, 2024 9:23am Start: 01-16-2019 End: 01-21-2019 take 20 mg by mouth once daily Fluoxetine Discontinued 20 MG PO Daily January 16, 2019 12:00am January 21, 2019 12:02pm folic acid 1 mg oral tablet (4 sources) Start: 01-21-2019 End: 01-01-2024 take 1 mg by mouth once daily Folic Acid Discontinued 1 MG PO Daily 14 14 January 21, 2019 12:00am January 01, 2024 9:23am potassium 99 mg extended release oral tablet (4 sources) Start: 01-16-2019 End: 01-01-2024 take 99 mg by mouth once daily Potassium Discontinued 99 MG PO Daily January 16, 2019 12:00am January 01, 2024 9:23am traZODone hydrochloride 100 mg oral tablet (8 sources) Serotonin Reuptake Inhibitor Start: 01-16-2019 End: 03-18-2024 take 100 mg by mouth once daily at bedtime Trazodone Discontinued 100 MG PO Daily at bedtime January 16, 2019 12:00am January 01, 2024 9:23am Start: 01-16-2019 End: 01-21-2019 take 50 mg by mouth once daily in the morning Trazodone Discontinued 50 MG PO Every morning January 16, 2019 12:00am January 21, 2019 12:03pm Problems Problem Classification Problem Date Documented Da te Episodic/Chronic Anxiety disorders (8 sources) Generalized anxiety disorder; Translations: [Generalized anxiety [...] insomnia; Translations: [Psychophysiologic insomnia] Chronic Mood disorders (4 sources) Recurrent major depression; Translations: [Major depressive disorder, recurrent, unspecified] 01-16-2019 Chronic Other gastrointestinal disorders (1 source) Diarrhea, unspecified; Translations: [DIARRHEA UNSPECIFIED] Onset: 0 Episodic Other injuries and conditions due to external causes (1 source) Other injury of unspecified body region, initial encounter; Translations: [OTHER INJURY UNS BODY REGION INIT] Onset: 0 Other screening for suspected conditions (not mental disorders or infectious disease) (9 sources) Encounter for screening for other disorder; Translations: [Decreased vitamin D] Onset: 0 01-19-2019 Episodic Residual codes; unclassified (4 sources) Obstructive sleep [...] hallucinations] Episodic Suicide and intentional self-inflicted injury (4 sources) Suicidal thoughts; Translations: [Suicidal ideations] 01-16-2019 Episodic Syncope (2 sources) Syncope and collapse; Translations: [Syncope] Onset: 4 12-23-2023 Episodic Unclassified (1 source) Varicose veins of [...] bilateral lower extremities with other complications] Episodic Results Test Name Value Interpretation Reference Range Facility US venous duplex LE RTon US venous duplex LE RT [facility] [place] [address] Ultrasound Report Signed Patient: Rosalie Velasquez MR#: [id number] : 1980 Acct:[id number] Age/Sex: 43 / F ADM Date: 12/20/23 Loc: [facility] Room: Type: [facility] Attending Dr: Devyn Daniels MD Ordering Provider: [...] Star Kamara MD12/20/2023 4:33 PM Dictation Location: [place] [address] Tech: Coni Atkinson Transcribed By: MATEO 12/20/23 1633 Dictated By: Star Kamara MD 12/20/23 1632 Signed By: 12/20/23 1633 Normal [facility] Alanine aminotransferase [En zymatic activity/volume] in Serum or PlasmaOrdered By: Luiz Farrell on 12-15-2023 ALT [Catalytic activity/Vol] 23 U/L 7-52 [facility] Albumin [Mass/volume] in Ser um or Plasma by Bromocresol green (BCG) dye binding methoOrdered By: Luiz Farrell on 12-15-2023 Albumin BCG dye [Mass/Vol] 3.9 g/dL 3.5-5.7 [facility] Alkaline phosphatase [Enzyma tic activity/volume] in Serum or PlasmaOrdered By: Luiz Farrell on 12-15-2023 ALP [Catalytic activity/Vol] 95 U/L 34-104 [facility] Aspartate aminotransferase [ Enzymatic activity/volume] in Serum or PlasmaOrdered By: Luiz Farrell on 12-15-2023 AST [Catalytic activity/Vol] 16 U/L 13-39 [facility] Basophils Auto (Bld) [#/Vol] Ordered By: Luiz Farrell on 12-15-2023 Basophils (Bld) [#/Vol] 0.0 10*3/uL 0.0-0.2 [facility] Basophils/100 WBC Auto (Bld) Ordered By: Luiz Farrell on 12-15-2023 Basophils/100 WBC (Bld) 0.4 % . [facility] Bilirubin.total [Mass/volume ] in Serum or PlasmaOrdered By: Luiz Farrell on 12-15-2023 Bilirubin [Mass/Vol] 1.0 mg/dL 0.3-1.0 [facility] Calcium [Mass/volume] in Ser um or PlasmaOrdered By: Luiz Farrell on 12-15-2023 Calcium [Mass/Vol] 8.3 mg/dL 8.6-10.3 [facility] Carbon dioxide, total [Moles /volume] in Serum or PlasmaOrdered By: Luiz Farrell on 12-15-2023 CO2 [Moles/Vol] 27.8 mmol/L 21.0-31.0 [facility] Chloride [Moles/volume] in S carmelo or PlasmaOrdered By: Luiz Farrell on 12-15-2023 Chloride [Moles/Vol] 107 mmol/L 98-107 [facility] Complete Blood Count Auto Di ffon 12-15-2023 Basophils (Bld) [#/Vol] 0.0 10*3/uL Normal 0.0-0.2 [facility] Comment on above: Result Comment: PERF ORMED BY: [place] [address] PATHOLOGIST WAITER/[employer] MARNIE GREGORY M.D. Performed By: #### C BC, CK, CMP, MG, HS TROP #### [facility] [address] Basophils/100 WBC (Bld) 0.4 % Normal . [facility] Comment on above: Performed By: #### C BC, CK, CMP, MG, HS TROP #### [facility] [address] [place] [address] [place] Eosinophils (Bld) [#/Vol] 0.1 10*3/uL Normal 0.0-0.45 [facility] Comment on above: Performed By: #### C BC, CK, CMP, MG, HS TROP #### [facility] [address] [place] [address] [place] Eosinophils/100 WBC (Bld) 2.3 % Normal . [facility] Comment on above: Performed By: #### C BC, CK, CMP, MG, HS TROP #### [facility] [address] [place] [address] [place] Erythrocyte distribution width (RBC) [Ratio] 13.0 % Normal 11.9-15.3 [facility] Comment on above: Performed By: #### C BC, CK, CMP, MG, HS TROP #### [address] Hematocrit (Bld) [Volume fraction] 36.8 % Normal 34.0-46.4 [facility] Comment on above: Performed By: #### C BC, CK, CMP, MG, HS TROP #### [address] Hemoglobin (Bld) [Mass/Vol] 12.6 g/dL Normal 11.8-15.4 [facility] Comment on above: Performed By: #### C BC, CK, CMP, MG, HS TROP #### [address] Lymphocytes (Bld) [#/Vol] 0.6 10*3/uL Low 1.00-4.8 [facility] Comment on above: Performed By: #### C BC, CK, CMP, MG, HS TROP #### [address] Lymphocytes/100 WBC (Bld) 13.8 % Normal . [facility] Comment on above: Performed By: #### C BC, CK, CMP, MG, HS TROP #### [address] MCH (RBC) [Entitic mass] 33.8 pg Normal 24.7-34.3 [facility] Comment on above: Performed By: #### C BC, CK, CMP, MG, HS TROP #### [address] MCV (RBC) [Entitic vol] 99.3 fL Normal 80-100 [facility] Comment on above: Performed By: #### C BC, CK, CMP, MG, HS TROP #### [address] Mean Corpuscular HGB Conc 34.1 g/dL Normal 32.0-35.0 [facility] Comment on above: Performed By: #### C BC, CK, CMP, MG, HS TROP #### [facility] [address] [place] [address] [place] Monocytes (Bld) [#/Vol] 0.2 10*3/uL Normal 0.0-0.8 [facility] Comment on above: Performed By: #### C BC, CK, CMP, MG, HS TROP #### [facility] [address] Monocytes/100 WBC (Bld) 17.63 % Normal 0.00-20.00 [facility] Comment on above: Performed By: #### C BC, CK, CMP, MG, HS TROP #### [address] Monocytes/100 WBC (Bld) 3.6 % Normal . [facility] Comment on above: Performed By: #### C BC, CK, CMP, MG, HS TROP #### [address] Neutrophils (Bld) [#/Vol] 3.5 10*3/uL Normal 1.8-7.7 [facility] Comment on above: Performed By: #### C BC, CK, CMP, MG, HS TROP #### [address] Neutrophils/100 WBC (Bld) 79.9 % Normal . [facility] Comment on above: Performed By: #### C BC, CK, CMP, MG, HS TROP #### [place] [address] [place] NRBC% 0.0 /100{WBC} Normal 0-0.5 [facility] Comment on above: Performed By: #### C BC, CK, CMP, MG, HS TROP #### [facility] [address] [place] [address] Platelet mean volume (Bld) [Entitic vol] 7.5 fL Normal 6.3-10.7 [facility] Comment on above: Performed By: #### C BC, CK, CMP, MG, HS TROP #### [facility] [address] Platelets (Bld) [#/Vol] 239 10*3/uL Normal 150-450 [facility] Comment on above: Performed By: #### C BC, CK, CMP, MG, HS TROP #### [facility] [address] RBC (Bld) [#/Vol] 3.71 10*6/uL Normal 3.60-5.00 [facility] Comment on above: Performed By: #### C BC, CK, CMP, MG, HS TROP #### [facility] [address] WBC (Bld) [#/Vol] 4.4 10*3/uL Normal 3.8-11.6 [facility] Comment on above: Performed By: #### C BC, CK, CMP, MG, HS TROP #### [address] Comprehensive Metabolic Pane ryan 12-15-2023 Albumin [Mass/Vol] 3.9 g/dL Normal 3.5-5.7 [facility] Comment on above: Performed By: #### C BC, CK, CMP, MG, HS TROP #### [address] Albumin/Globulin [Mass ratio] 1.6 {ratio} Normal [facility] Comment on above: Performed By: #### C BC, CK, CMP, MG, HS TROP #### [address] ALP [Catalytic activity/Vol] 95 U/L Normal 34-104 [facility] Comment on above: Performed By: #### C BC, CK, CMP, MG, HS TROP #### [address] ALT [Catalytic activity/Vol] 23 U/L Normal 7-52 [facility] Comment on above: Performed By: #### C BC, CK, CMP, MG, HS TROP #### [facility] [address] Anion gap [Moles/Vol] 8.5 mmol/L Normal 6.0-15.0 [facility] Comment on above: Performed By: #### C BC, CK, CMP, MG, HS TROP #### [facility] [address] AST [Catalytic activity/Vol] 16 U/L Normal 13-39 [facility] Comment on above: Performed By: #### C BC, CK, CMP, MG, HS TROP #### [facility] [address] Bilirubin [Mass/Vol] 1.0 mg/dL Normal 0.3-1.0 [facility] Comment on above: Performed By: #### C BC, CK, CMP, MG, HS TROP #### [facility] [address] Calcium [Mass/Vol] 8.3 mg/dL Low 8.6-10.3 [facility] Comment on above: Performed By: #### C BC, CK, CMP, MG, HS TROP #### [facility] [address] Chloride [Moles/Vol] 107 mmol/L Normal 98-107 [facility] Comment on above: Performed By: #### C BC, CK, CMP, MG, HS TROP #### [facility] [address] CO2 [Moles/Vol] 27.8 mmol/L Normal 21.0-31.0 [facility] Comment on above: Performed By: #### C BC, CK, CMP, MG, HS TROP #### [facility] [address] Creatinine [Mass/Vol] 0.87 mg/dL Normal 0.60-1.20 [facility] Comment on above: Performed By: #### C BC, CK, CMP, MG, HS TROP #### [facility] [address] [place] [address] [place] Creatinine Clr Calc Pharmacy 86.85 Normal [facility] Comment on above: Performed By: #### C BC, CK, CMP, MG, HS TROP #### [facility] [address] GFR/1.73 sq M.predicted MDRD (S/P/Bld) [Vol rate/Area] mL/min/{1.73_m2} [facility] Comment on above: Performed By: #### C BC, CK, CMP, MG, HS TROP #### [facility] [address] Globulin (S) [Mass/Vol] 2.4 g/dL Normal [facility] Comment on above: Performed By: #### C BC, CK, CMP, MG, HS TROP #### [facility] [address] Glucose [Mass/Vol] 108 mg/dL High 70-100 [facility] Comment on above: Result Comment: [facility] Glucose Reference Range is dependent on time and content of last meal. Glucose of more than 200 mg/dL in a nonstressed, ambulatory subject supports the diagnosis of Diabetes Mellitus. ADA recommended reference range Performed By: #### C BC, CK, CMP, MG, HS TROP #### [facility] [address] Potassium [Moles/Vol] 4.3 mmol/L Normal 3.5-5.1 [facility] Comment on above: Performed By: #### C BC, CK, CMP, MG, HS TROP #### [facility] [address] Protein [Mass/Vol] 6.3 g/dL Low 6.4-8.9 [facility] Comment on above: Performed By: #### C BC, CK, CMP, MG, HS TROP #### [facility] [address] Sodium [Moles/Vol] 139 mmol/L Normal 136-145 [facility] Comment on above: Performed By: #### C BC, CK, CMP, MG, HS TROP #### [facility] [address] [place] [id number] [place] Urea nitrogen [Mass/Vol] 11 mg/dL Normal 7-25 [facility] Comment on above: Performed By: #### C BC, CK, CMP, MG, HS TROP #### [facility] [address] [place] [address] [place] Creatine Kinaseon 12-15-2023 CK [Catalytic activity/Vol] 41 U/L Normal 30- [facility] Comment on above: Performed By: #### C BC, CK, CMP, MG, HS TROP #### [facility] [address] [place] [address] [facility] Creatine kinase [Enzymatic a ctivity/volume] in Serum or PlasmaOrdered By: Luiz Farrell on 12-15-2023 CK [Catalytic activity/Vol] 41 U/L 30- [facility] Creatinine [Mass/volume] in Serum or PlasmaOrdered By: Luiz Farrell on 12-15-2023 Creatinine [Mass/Vol] 0.87 mg/dL 0.60-1.20 [facility] ECG 12 lead ECGon 12-15-2023 ECG 12 lead ECG [facility] Main [place] [address] [place] [address] Electrocardiograph Report Signed Patient: Rosalie Velasquez MR#: [id number] : 1980 Acct:[id number] Age/Sex: 43 / F ADM Date: 12/15/23 Loc: ER Room: Type: [facility] ER Attending Dr: Ordering Provider: Luiz Farrell [...] By Gael Norris MD 12/15/23 1441 Normal [facility] Eosinophils Auto (Bld) [#/Vo l]Ordered By: Luiz Farrell on 12-15-2023 Eosinophils (Bld) [#/Vol] 0.1 10*3/uL 0.0-0.45 [facility] Eosinophils/100 WBC Auto (Bl d)Ordered By: Luiz Farrell on 12-15-2023 Eosinophils/100 WBC (Bld) 2.3 % . [facility] Erythrocyte distribution wid th Auto (RBC) [Ratio]Ordered By: Luiz Farrell on 12-15-2023 Erythrocyte distribution width (RBC) [Ratio] 13.0 % 11.9-15.3 [facility] Globulin Calc (S) [Mass/Vol] Ordered By: Luiz Farrell on 12-15-2023 Globulin (S) [Mass/Vol] 2.4 g/dL [facility] Glucose Glucometer (BldC) [M ass/Vol]Ordered By: Luiz Farrell on 12-15-2023 Glucose [Mass/Vol] 115 mg/dL [facility] Comment on above: Random Glucose Refer ence Range is dependent on time and content of last meal. Glucose of more than 200 mg/dL in a nonstressed, ambulatory subject supports the diagnosis of Diabetes Mellitus. Glucose Poct Glucometerson 0 12-15-2023 Commemt1 Glu2: Cleaned Meter Normal [facility] Comment on above: Result Comment: PERF ORMED BY: [facility] [address] [address] PATHOLOGIST WAITER/[employer] MARNIE GREGORY M.D. Performed By: #### G LULS #### Point of Care testing , Glucose [Mass/Vol] 115 mg/dL Normal [facility] Comment on above: Result Comment: [place] Glucose Reference Range is dependent on time and content of last meal. Glucose of more than 200 mg/dL in a nonstressed, ambulatory subject supports the diagnosis of Diabetes Mellitus. Performed By: #### G LULS #### Point of Care testing , Glucose [Mass/volume] in Ser um or PlasmaOrdered By: Luiz Farrell on 12-15-2023 Glucose [Mass/Vol] 108 mg/dL 70-100 [facility] Comment on above: ADA recommended refe rence rangeRandom Glucose Reference Range is dependent on time and content of last meal. Glucose of more than 200 mg/dL in a nonstressed, ambulatory subject supports the diagnosis of Diabetes Mellitus. Hematocrit Auto (Bld) [Volum e fraction]Ordered By: Luiz Farrell on 12-15-2023 Hematocrit (Bld) [Volume fraction] 36.8 % 34.0-46.4 [facility] Hemoglobin [Mass/volume] in BloodOrdered By: Luiz Farrell on 12-15-2023 Hemoglobin (Bld) [Mass/Vol] 12.6 g/dL 11.8-15.4 [facility] Leukocytes [#/volume] correc debi for nucleated erythrocytes in Blood by Automated counOrdered By: Luiz Farrell on 12-15-2023 WBC corrected for nucl RBC Auto (Bld) [#/Vol] 4.4 10*3/uL 3.8-11.6 [facility] Lymphocytes Auto (Bld) [#/Vo l]Ordered By: Luiz Farrell on 12-15-2023 Lymphocytes (Bld) [#/Vol] 0.6 10*3/uL 1.00-4.8 [facility] Lymphocytes/100 WBC Auto (Bl d)Ordered By: Luiz Farrell on 12-15-2023 Lymphocytes/100 WBC (Bld) 13.8 % . [facility] MCH Auto (RBC) [Entitic mass ]Ordered By: Luiz Farrell on 12-15-2023 MCH (RBC) [Entitic mass] 33.8 pg 24.7-34.3 [facility] MCHC Auto (RBC) [Mass/Vol]Or dered By: Luiz Farrell on 12-15-2023 MCHC (RBC) [Mass/Vol] 34.1 g/dL 32.0-35.0 [facility] MCV Auto (RBC) [Entitic vol] Ordered By: Luiz Farrell on 12-15-2023 MCV (RBC) [Entitic vol] 99.3 fL 80-100 [facility] Magnesiumon 12-15-2023 Magnesium [Mass/Vol] 1.9 mg/dL Normal 1.9-2.7 [facility] Comment on above: Result Comment: PERF ORMED BY: [facility] [address] [place] [address] PATHOLOGIST WAITER/[employer] MARNIE GREGORY M.D. Performed By: #### C BC, CK, CMP, MG, HS TROP #### [facility] [address] Magnesium [Mass/volume] in S carmelo or PlasmaOrdered By: Luiz Farrell on 12-15-2023 Magnesium [Mass/Vol] 1.9 mg/dL 1.9-2.7 [facility] Monocyte distribution width [Entitic volume] in Blood by AutomatedOrdered By: Luiz Farrell on 12-15-2023 Monocyte distribution width Auto (Bld) [Entitic vol] 17.63 % 0.00-20.00 [facility] Monocytes Auto (Bld) [#/Vol] Ordered By: Luiz Farrell on 12-15-2023 Monocytes (Bld) [#/Vol] 0.2 10*3/uL 0.0-0.8 [facility] Monocytes/100 WBC Auto (Bld) Ordered By: Luiz Farrell on 12-15-2023 Monocytes/100 WBC (Bld) 3.6 % . [facility] Neutrophils Auto (Bld) [#/Vo l]Ordered By: Luiz Farrell on 12-15-2023 Neutrophils (Bld) [#/Vol] 3.5 10*3/uL 1.8-7.7 [facility] Neutrophils/100 WBC Auto (Bl d)Ordered By: Luiz Farrell on 12-15-2023 Neutrophils/100 WBC (Bld) 79.9 % . [facility] No Panel InformationOrdered By: Luiz Farrell on 12-15-2023 Estimated GFR (CKD-EPI) > 60.0 mL/Min [facility] Creatinine Clearance (Chem 86.85 [facility] Bedside Glucose Comment Glu2: cleaned meter [facility] Nucleated erythrocytes [Pres ence] in Blood by Automated countOrdered By: Luiz Farrell on 12-15-2023 Nucleated RBC Auto Ql (Bld) 0.0 /100{WBC} 0-0.5 [facility] Platelet mean volume Auto (B ld) [Entitic vol]Ordered By: Luiz Farrell on 12-15-2023 Platelet mean volume (Bld) [Entitic vol] 7.5 fL 6.3-10.7 [facility] Platelets Auto (Bld) [#/Vol] Ordered By: Luiz Farrell on 12-15-2023 Platelets (Bld) [#/Vol] 239 10*3/uL 150-450 [facility] Potassium [Moles/volume] in Serum or PlasmaOrdered By: Luiz Farrell on 12-15-2023 Potassium [Moles/Vol] 4.3 mmol/L 3.5-5.1 [facility] Protein [Mass/volume] in Ser um or PlasmaOrdered By: Luiz Farrell on 12-15-2023 Protein [Mass/Vol] 6.3 g/dL 6.4-8.9 [facility] RBC Auto (Bld) [#/Vol]Ordere d By: Luiz Farrell on 12-15-2023 RBC (Bld) [#/Vol] 3.71 10*6/uL 3.60-5.00 [facility] Serum or plasma albumin/glob ulin mass ratioOrdered By: Luiz Farrell on 12-15-2023 Albumin/Globulin [Mass ratio] 1.6 {ratio} [facility] Serum or plasma anion gap de terminationOrdered By: Luiz Farrell on 12-15-2023 Anion gap [Moles/Vol] 8.5 mmol/L 6.0-15.0 [facility] Sodium [Moles/volume] in Ser um or PlasmaOrdered By: Luiz Farrell on 12-15-2023 Sodium [Moles/Vol] 139 mmol/L 136-145 [facility] Troponin I High Sensitivityo n 12-15-2023 Troponin I High Sensitivity < 2.3 Normal 0.0-15.0 [facility] Comment on above: Result Comment: PERF ORMED BY: [facility] [address] [place] [address] PATHOLOGIST WAITER/[employer] MARNIE GREGORY M.D. Performed By: #### C BC, CK, CMP, MG, HS TROP #### [place] [id number] [facility] Troponin I.cardiac [Mass/vol ume] in Serum or Plasma by Detection limit <= 0.01 ng/Ordered By: Luiz Farrell on 12-15-2023 Troponin I.cardiac DL <= 0.01 ng/mL [Mass/Vol] < 2.3 pg/mL 0.0-15.0 [facility] Urea nitrogen [Mass/volume] in Serum or PlasmaOrdered By: Luiz Farrell on 12-15-2023 Urea nitrogen [Mass/Vol] 11 mg/dL 7-25 [facility] WBC Auto (Bld) [#/Vol]Ordere d By: Luiz Farrell on 12-15-2023 WBC (Bld) [#/Vol] 4.4 10*3/uL 3.8-11.6 [facility] US venous duplex LE LTon US venous duplex LE [facility] Main [place] [address] [place] [address] Ultrasound Report Signed Patient: Rosalie Velasquez MR#: [id number] 908 : 1980 Acct:[id number] Age/Sex: 43 / F ADM Date: 10/10/23 Loc: [facility] Room: Type: [facility] Attending Dr: Devyn Daniels MD Ordering [...] Devyn Daniels M.D.10/20/2023 10:29 AM Dictation Location: [place] [address] Tech: Rosalie Vincentmark Transcribed By: MATEO 10/20/23 1029 Dictated By: Devyn Daniels MD 10/20/23 1028 Signed By: 10/20/23 1029 [facility] US venous duplex LE BIon US venous duplex LE BI [facility] Main [place] [address] [place] [address] Ultrasound Report Signed Patient: Rosalie Velasquez MR#: [id number] 908 : 1980 Acct:[id number] Age/Sex: 43 / F ADM Date: 07/27/23 Loc: Room: Type: [facility] Attending Dr: Lisset Orellana [employer] Ordering Provider: Lisset Orellana APRN Date of [...] Star Kamara MD07/28/2023 9:55 AM Dictation Location: [place] [address] Tech: Jojo Gateser Transcribed By: MATEO 07/28/23954 Dictated By: Star Kamara MD 07/28/23953 Signed By: 07/28/23954 Normal [facility] Alanine aminotransferase [En zymatic activity/volume] in Serum or PlasmaOrdered By: Aris Son on 02-24-2023 ALT [Catalytic activity/Vol] 20 U/L 7-52 [facility] Albumin [Mass/volume] in Ser um or Plasma by Bromocresol green (BCG) dye binding methoOrdered By: Aris Son on 02-24-2023 Albumin BCG dye [Mass/Vol] 4.0 g/dL 3.5-5.7 [facility] Alkaline phosphatase [Enzyma tic activity/volume] in Serum or PlasmaOrdered By: rAis Son on 02-24-2023 ALP [Catalytic activity/Vol] 83 U/L 34-104 [facility] Aspartate aminotransferase [ Enzymatic activity/volume] in Serum or PlasmaOrdered By: Aris Son on 02-24-2023 AST [Catalytic activity/Vol] 15 U/L 13-39 [facility] Basophils Auto (Bld) [#/Vol] Ordered By: Aris Son on 02-24-2023 Basophils (Bld) [#/Vol] 0.0 10*3/uL 0.0-0.2 [facility] Basophils/100 WBC Auto (Bld) Ordered By: Aris Son on 02-24-2023 Basophils/100 WBC (Bld) 0.7 % . [facility] Bilirubin.total [Mass/volume ] in Serum or PlasmaOrdered By: Aris Son on 02-24-2023 Bilirubin [Mass/Vol] 0.7 mg/dL 0.3-1.0 [facility] Calcium [Mass/volume] in Ser um or PlasmaOrdered By: Aris Son on 02-24-2023 Calcium [Mass/Vol] 8.6 mg/dL 8.6-10.3 [facility] Carbon dioxide, total [Moles /volume] in Serum or PlasmaOrdered By: Aris Son on 02-24-2023 CO2 [Moles/Vol] 25.4 mmol/L 21.0-31.0 [facility] Chloride [Moles/volume] in S carmelo or PlasmaOrdered By: Aris Son on 02-24-2023 Chloride [Moles/Vol] 105 mmol/L 98-107 [facility] Cholesterol [Mass/volume] in Serum or PlasmaOrdered By: Aris Son on 02-24-2023 Cholesterol [Mass/Vol] 161 mg/dL 140-200 [facility] Comment on above: Chol less than 200 m g/dl low riskChol 201-239 mg/dl borderline riskChol 240 mg/dl and greater high risk Cholesterol in LDL Calc [Mas s/Vol]Ordered By: Aris Son on 02-24-2023 Cholesterol in LDL [Mass/Vol] 85 mg/dL 0-100 [facility] Comment on above: LDL ATP III CLASSIFI CATIONLDL less than 100 mg/dL OptimalLDL 100-129 mg/dL Near or above optimalLDL 130-159 mg/dL Borderline highLDL 160-189 mg/dL HighLDL greater than 189 mg/dL Very high Cholesterol in VLDL Calc [Ma ss/Vol]Ordered By: Aris Son on 02-24-2023 Cholesterol in VLDL [Mass/Vol] 19 mg/dL [facility] Complete Blood Count Auto Di ffon 02-24-2023 Basophils (Bld) [#/Vol] 0.0 10*3/uL Normal 0.0-0.2 [facility] Comment on above: Order Comment: Reaso n for Exam Screening for heart disease Result Comment: PERF ORMED BY: [facility] [address] [place] [address] PATHOLOGIST WAITER[employer] MARNIE GREGORY M.D. Performed By: #### C BC, TSH3 wRFLX, CMP, LIPID ####[facility] [id number] [place] [id number] [place] Basophils/100 WBC (Bld) 0.7 % Normal . [facility] Comment on above: Order Comment: Reaso n for Exam Screening for heart disease Performed By: #### C BC, TSH3 wRFLX, CMP, LIPID ####[facility] [address] Eosinophils (Bld) [#/Vol] 0.1 10*3/uL Normal 0.0-0.45 [facility] Comment on above: Order Comment: Reaso n for Exam Screening for heart disease Performed By: #### C BC, TSH3 wRFLX, CMP, LIPID ####[address] Eosinophils/100 WBC (Bld) 2.1 % Normal . [facility] Comment on above: Order Comment: Reaso n for Exam Screening for heart disease Performed By: #### C BC, TSH3 wRFLX, CMP, LIPID ####[address] Erythrocyte distribution width (RBC) [Ratio] 13.4 % Normal 11.9-15.3 [facility] Comment on above: Order Comment: Reaso n for Exam Screening for heart disease Performed By: #### C BC, TSH3 wRFLX, CMP, LIPID ####[address] Hematocrit (Bld) [Volume fraction] 38.2 % Normal 34.0-46.4 [facility] Comment on above: Order Comment: Reaso n for Exam Screening for heart disease Performed By: #### C BC, TSH3 wRFLX, CMP, LIPID ####[address] Hemoglobin (Bld) [Mass/Vol] 12.9 g/dL Normal 11.8-15.4 [facility] Comment on above: Order Comment: Reaso n for Exam Screening for heart disease Performed By: #### C BC, TSH3 wRFLX, CMP, LIPID ####[address] Lymphocytes (Bld) [#/Vol] 1.0 10*3/uL Normal 1.00-4.8 [facility] Comment on above: Order Comment: Reaso n for Exam Screening for heart disease Performed By: #### C BC, TSH3 wRFLX, CMP, LIPID ####[address] Lymphocytes/100 WBC (Bld) 29.1 % Normal . [facility] Comment on above: Order Comment: Reaso n for Exam Screening for heart disease Performed By: #### C BC, TSH3 wRFLX, CMP, LIPID ####[address] MCH (RBC) [Entitic mass] 33.5 pg Normal 24.7-34.3 [facility] Comment on above: Order Comment: Reaso n for Exam Screening for heart disease Performed By: #### C BC, TSH3 wRFLX, CMP, LIPID ####[address] MCV (RBC) [Entitic vol] 98.9 fL Normal 80-100 [facility] Comment on above: Order Comment: Reaso n for Exam Screening for heart disease Performed By: #### C BC, TSH3 wRFLX, CMP, LIPID ####[address] Mean Corpuscular HGB Conc 33.8 g/dL Normal 32.0-35.0 [facility] Comment on above: Order Comment: Reaso n for Exam Screening for heart disease Performed By: #### C BC, TSH3 wRFLX, CMP, LIPID ####[address] Monocytes (Bld) [#/Vol] 0.3 10*3/uL Normal 0.0-0.8 [facility] Comment on above: Order Comment: Reaso n for Exam Screening for heart disease Performed By: #### C BC, TSH3 wRFLX, CMP, LIPID ####[address] Monocytes/100 WBC (Bld) 7.3 % Normal . [facility] Comment on above: Order Comment: Reaso n for Exam Screening for heart disease Performed By: #### C BC, TSH3 wRFLX, CMP, LIPID ####[address] Neutrophils (Bld) [#/Vol] 2.2 10*3/uL Normal 1.8-7.7 [facility] Comment on above: Order Comment: Reaso n for Exam Screening for heart disease Performed By: #### C BC, TSH3 wRFLX, CMP, LIPID ####[place] [address] [place] [address] [facility] Neutrophils/100 WBC (Bld) 60.8 % Normal . [facility] Comment on above: Order Comment: Reaso n for Exam Screening for heart disease Performed By: #### C BC, TSH3 wRFLX, CMP, LIPID ####[place] [address] [place] [phone] [facility] NRBC% 0.0 /100{WBC} Normal 0-0.5 [facility] Comment on above: Order Comment: Reaso n for Exam Screening for heart disease Performed By: #### C BC, TSH3 wRFLX, CMP, LIPID ####[place] [address] [place] [phone] [facility] Platelet mean volume (Bld) [Entitic vol] 8.1 fL Normal 6.3-10.7 [facility] Comment on above: Order Comment: Reaso n for Exam Screening for heart disease Performed By: #### C BC, TSH3 wRFLX, CMP, LIPID ####[place] [address] [place] [address] [facility] Platelets (Bld) [#/Vol] 292 10*3/uL Normal 150-450 [facility] Comment on above: Order Comment: Reaso n for Exam Screening for heart disease Performed By: #### C BC, TSH3 wRFLX, CMP, LIPID ####[place] [address] [place] [address] [facility] RBC (Bld) [#/Vol] 3.86 10*6/uL Normal 3.60-5.00 [facility] Comment on above: Order Comment: Reaso n for Exam Screening for heart disease Performed By: #### C BC, TSH3 wRFLX, CMP, LIPID ####[place] [address] [place] [address] [facility] WBC (Bld) [#/Vol] 3.6 10*3/uL Low 3.8-11.6 [facility] Comment on above: Order Comment: Reaso n for Exam Screening for heart disease Performed By: #### C BC, TSH3 wRFLX, CMP, LIPID ####[place] [address] [place] [address] [facility] Comprehensive Metabolic Pane ryan 02-24-2023 Albumin [Mass/Vol] 4.0 g/dL Normal 3.5-5.7 [facility] Comment on above: Order Comment: Reaso n for Exam Screening for heart disease Reason for Exam Annual physical exam;Screening for heart disease disease;Anxiety Performed By: #### C BC, TSH3 wRFLX, CMP, LIPID ####[address] [address] [facility] Albumin/Globulin [Mass ratio] 1.7 {ratio} Normal [facility] Comment on above: Order Comment: Reaso n for Exam Screening for heart disease Reason for Exam Annual physical exam;Screening for heart disease disease;Anxiety Performed By: #### C BC, TSH3 wRFLX, CMP, LIPID ####[address] [address] [facility] ALP [Catalytic activity/Vol] 83 U/L Normal 34-104 [facility] Comment on above: Order Comment: Reaso n for Exam Screening for heart disease Reason for Exam Annual physical exam;Screening for heart disease disease;Anxiety Performed By: #### C BC, TSH3 wRFLX, CMP, LIPID ####[address] [address] [facility] ALT [Catalytic activity/Vol] 20 U/L Normal 7-52 [facility] Comment on above: Order Comment: Reaso n for Exam Screening for heart disease Reason for Exam Annual physical exam;Screening for heart disease disease;Anxiety Performed By: #### C BC, TSH3 wRFLX, CMP, LIPID ####[address] [address] [facility] Anion gap [Moles/Vol] 10.8 mmol/L Normal 6.0-15.0 [facility] Comment on above: Order Comment: Reaso n for Exam Screening for heart disease Reason for Exam Annual physical exam;Screening for heart disease disease;Anxiety Performed By: #### C BC, TSH3 wRFLX, CMP, LIPID ####[facility] [place] [address] [facility] AST [Catalytic activity/Vol] 15 U/L Normal 13-39 [facility] Comment on above: Order Comment: Reaso n for Exam Screening for heart disease Reason for Exam Annual physical exam;Screening for heart disease disease;Anxiety Performed By: #### C BC, TSH3 wRFLX, CMP, LIPID ####[place] [address] [place] [address] [facility] Bilirubin [Mass/Vol] 0.7 mg/dL Normal 0.3-1.0 [facility] Comment on above: Order Comment: Reaso n for Exam Screening for heart disease Reason for Exam Annual physical exam;Screening for heart disease disease;Anxiety Performed By: #### C BC, TSH3 wRFLX, CMP, LIPID ####[place] [address] [place] [address] [facility] Calcium [Mass/Vol] 8.6 mg/dL Normal 8.6-10.3 [facility] Comment on above: Order Comment: Reaso n for Exam Screening for heart disease Reason for Exam Annual physical exam;Screening for heart disease disease;Anxiety Performed By: #### C BC, TSH3 wRFLX, CMP, LIPID ####[place] [address] [place] [address] [facility] Chloride [Moles/Vol] 105 mmol/L Normal 98-107 [facility] Comment on above: Order Comment: Reaso n for Exam Screening for heart disease Reason for Exam Annual physical exam;Screening for heart disease disease;Anxiety Performed By: #### C BC, TSH3 wRFLX, CMP, LIPID ####[place] [address] [place] [address] [facility] CO2 [Moles/Vol] 25.4 mmol/L Normal 21.0-31.0 [facility] Comment on above: Order Comment: Reaso n for Exam Screening for heart disease Reason for Exam Annual physical exam;Screening for heart disease disease;Anxiety Performed By: #### C BC, TSH3 wRFLX, CMP, LIPID ####[facility] [place] [address] [facility] Creatinine [Mass/Vol] 0.96 mg/dL Normal 0.60-1.20 [facility] Comment on above: Order Comment: Reaso n for Exam Screening for heart disease Reason for Exam Annual physical exam;Screening for heart disease disease;Anxiety Performed By: #### C BC, TSH3 wRFLX, CMP, LIPID ####[place] [address] [place] [phone] [facility] GFR/1.73 sq M.predicted MDRD (S/P/Bld) [Vol rate/Area] mL/min/{1.73_m2} Normal [facility] Comment on above: Order Comment: Reaso n for Exam Screening for heart disease Reason for Exam Annual physical exam;Screening for heart disease disease;Anxiety Performed By: #### C BC, TSH3 wRFLX, CMP, LIPID ####[place] [id number] [facility] Globulin (S) [Mass/Vol] 2.3 g/dL Normal [facility] Comment on above: Order Comment: Reaso n for Exam Screening for heart disease Reason for Exam Annual physical exam;Screening for heart disease disease;Anxiety Performed By: #### C BC, TSH3 wRFLX, CMP, LIPID ####[place] [address] [place] [phone] [facility] Glucose [Mass/Vol] 84 mg/dL Normal 70-100 [facility] Comment on above: Order Comment: Reaso n for Exam Screening for heart disease Reason for Exam Annual physical exam;Screening for heart disease disease;Anxiety Result Comment: [place] Glucose Reference Range is dependent on time and content of last meal. Glucose of more than 200 mg/dL in a nonstressed, ambulatory subject supports the diagnosis of Diabetes Mellitus. ADA recommended reference range Performed By: #### C BC, TSH3 wRFLX, CMP, LIPID ####[place] [address] [place] [id number] [facility] Potassium [Moles/Vol] 4.2 mmol/L Normal 3.5-5.1 [facility] Comment on above: Order Comment: Reaso n for Exam Screening for heart disease Reason for Exam Annual physical exam;Screening for heart disease disease;Anxiety Performed By: #### C BC, TSH3 wRFLX, CMP, LIPID ####[place] [address] [place] [phone] [facility] Protein [Mass/Vol] 6.3 g/dL Low 6.4-8.9 [facility] Comment on above: Order Comment: Reaso n for Exam Screening for heart disease Reason for Exam Annual physical exam;Screening for heart disease disease;Anxiety Performed By: #### C BC, TSH3 wRFLX, CMP, LIPID ####[place] [address] [place] [phone] [facility] Sodium [Moles/Vol] 137 mmol/L Normal 136-145 [facility] Comment on above: Order Comment: Reaso n for Exam Screening for heart disease Reason for Exam Annual physical exam;Screening for heart disease disease;Anxiety Performed By: #### C BC, TSH3 wRFLX, CMP, LIPID ####[place] [address] [place] [phone] [facility] Urea nitrogen [Mass/Vol] 19 mg/dL Normal 7-25 [facility] Comment on above: Order Comment: Reaso n for Exam Screening for heart disease Reason for Exam Annual physical exam;Screening for heart disease disease;Anxiety Performed By: #### C BC, TSH3 wRFLX, CMP, LIPID ####[place] [address] [place] [phone] [facility] Creatinine [Mass/volume] in Serum or PlasmaOrdered By: Aris Son on 02-24-2023 Creatinine [Mass/Vol] 0.96 mg/dL 0.60-1.20 [facility] Eosinophils Auto (Bld) [#/Vo l]Ordered By: Aris Son on 02-24-2023 Eosinophils (Bld) [#/Vol] 0.1 10*3/uL 0.0-0.45 [facility] Eosinophils/100 WBC Auto (Bl d)Ordered By: Aris Son on 02-24-2023 Eosinophils/100 WBC (Bld) 2.1 % . [facility] Erythrocyte distribution wid th Auto (RBC) [Ratio]Ordered By: Aris Son on 02-24-2023 Erythrocyte distribution width (RBC) [Ratio] 13.4 % 11.9-15.3 [facility] Globulin Calc (S) [Mass/Vol] Ordered By: Aris Son on 02-24-2023 Globulin (S) [Mass/Vol] 2.3 g/dL [facility] Glucose [Mass/volume] in Ser um or PlasmaOrdered By: Aris Son on 02-24-2023 Glucose [Mass/Vol] 84 mg/dL 70-100 [facility] Comment on above: ADA recommended refe rence rangeRandom Glucose Reference Range is dependent on time and content of last meal. Glucose of more than 200 mg/dL in a nonstressed, ambulatory subject supports the diagnosis of Diabetes Mellitus. Hematocrit Auto (Bld) [Volum e fraction]Ordered By: Aris Son on 02-24-2023 Hematocrit (Bld) [Volume fraction] 38.2 % 34.0-46.4 [facility] Hemoglobin [Mass/volume] in BloodOrdered By: Aris Son on 02-24-2023 Hemoglobin (Bld) [Mass/Vol] 12.9 g/dL 11.8-15.4 [facility] Leukocytes [#/volume] correc debi for nucleated erythrocytes in Blood by Automated counOrdered By: Aris Son on 02-24-2023 WBC corrected for nucl RBC Auto (Bld) [#/Vol] 3.6 10*3/uL 3.8-11.6 [facility] Lipid Panelon 02-24-2023 Cholesterol [Mass/Vol] 161 mg/dL Normal 140-200 [facility] Comment on above: Order Comment: Reaso n for Exam Screening for heart disease Reason for Exam Annual physical exam;Screening for heart disease disease;Anxiety Result Comment: Chol less than 200 mg/dl low risk Chol 201-239 mg/dl borderline risk Chol 240 mg/dl and greater high risk Performed By: #### C BC, TSH3 wRFLX, CMP, LIPID ####[facility] [address] [place] [address] [facility] Cholesterol in HDL [Mass/Vol] 56 mg/dL Normal 35-85 [facility] Comment on above: Order Comment: Reaso n for Exam Screening for heart disease Reason for Exam Annual physical exam;Screening for heart disease disease;Anxiety Result Comment: HDL CHOL ATP-III CLASSIFICATION Cardiovascular Risk HDL > or equal to 60 mg/dL LOW HDL < 40 mg/dL HIGH Performed By: #### C BC, TSH3 wRFLX, CMP, LIPID ####[place] [address] [place] [phone] [facility] Cholesterol.total/Choles terol in HDL [Mass ratio] 2.9 {ratio} Normal <5.0 [facility] Comment on above: Order Comment: Reaso n for Exam Screening for heart disease Reason for Exam Annual physical exam;Screening for heart disease disease;Anxiety Performed By: #### C BC, TSH3 wRFLX, CMP, LIPID ####[place] [id number] [facility] LDL Cholesterol,Calculated 85 mg/dL Normal 0-100 [facility] Comment on above: Order [...] #### C BC, TSH3 wRFLX, CMP, LIPID ####[place] [id number] [facility] Triglyceride w/Reflex 99 mg/dL Normal 0-149 [facility] Comment on above: Order Comment: Reaso [...] #### C BC, TSH3 wRFLX, CMP, LIPID ####[place] [id number] VLDL CHOLESTEROL 19 mg/dL Normal [facility] Comment on above: Order Comment: Reaso n for Exam Screening for heart disease Reason for Exam Annual physical exam;Screening for heart disease disease;Anxiety Performed By: #### C BC, TSH3 wRFLX, CMP, LIPID ####[facility] [id number] Lymphocytes Auto (Bld) [#/Vo l]Ordered By: Aris Son on 02-24-2023 Lymphocytes (Bld) [#/Vol] 1.0 10*3/uL 1.00-4.8 [facility] Lymphocytes/100 WBC Auto (Bl d)Ordered By: Aris Son on 02-24-2023 Lymphocytes/100 WBC (Bld) 29.1 % . [facility] MCH Auto (RBC) [Entitic mass ]Ordered By: Aris Son on 02-24-2023 MCH (RBC) [Entitic mass] 33.5 pg 24.7-34.3 [facility] MCHC Auto (RBC) [Mass/Vol]Or dered By: Aris Son on 02-24-2023 MCHC (RBC) [Mass/Vol] 33.8 g/dL 32.0-35.0 [facility] MCV Auto (RBC) [Entitic vol] Ordered By: Aris Son on 02-24-2023 MCV (RBC) [Entitic vol] 98.9 fL 80-100 [facility] Monocytes Auto (Bld) [#/Vol] Ordered By: Aris Son on 02-24-2023 Monocytes (Bld) [#/Vol] 0.3 10*3/uL 0.0-0.8 [facility] Monocytes/100 WBC Auto (Bld) Ordered By: Aris Son on 02-24-2023 Monocytes/100 WBC (Bld) 7.3 % . [facility] Neutrophils Auto (Bld) [#/Vo l]Ordered By: Aris Son on 02-24-2023 Neutrophils (Bld) [#/Vol] 2.2 10*3/uL 1.8-7.7 [facility] Neutrophils/100 WBC Auto (Bl d)Ordered By: Aris Son on 02-24-2023 Neutrophils/100 WBC (Bld) 60.8 % . [facility] No Panel InformationOrdered By: Aris Son on 02-24-2023 Estimated GFR (CKD-EPI) > 60.0 mL/Min [facility] Creatinine Clearance (Chem N/A [facility] Nucleated erythrocytes [Pres ence] in Blood by Automated countOrdered By: Aris Son on 02-24-2023 Nucleated RBC Auto Ql (Bld) 0.0 /100{WBC} 0-0.5 [facility] Platelet mean volume Auto (B ld) [Entitic vol]Ordered By: Aris Son on 02-24-2023 Platelet mean volume (Bld) [Entitic vol] 8.1 fL 6.3-10.7 [facility] Platelets Auto (Bld) [#/Vol] Ordered By: Aris Son on 02-24-2023 Platelets (Bld) [#/Vol] 292 10*3/uL 150-450 [facility] Potassium [Moles/volume] in Serum or PlasmaOrdered By: Aris Son on 02-24-2023 Potassium [Moles/Vol] 4.2 mmol/L 3.5-5.1 [facility] Protein [Mass/volume] in Ser um or PlasmaOrdered By: Aris Son on 02-24-2023 Protein [Mass/Vol] 6.3 g/dL 6.4-8.9 [facility] RBC Auto (Bld) [#/Vol]Ordere d By: Aris Son on 02-24-2023 RBC (Bld) [#/Vol] 3.86 10*6/uL 3.60-5.00 [facility] Serum or plasma albumin/glob ulin mass ratioOrdered By: Aris Son on 02-24-2023 Albumin/Globulin [Mass ratio] 1.7 {ratio} [facility] Serum or plasma anion gap de terminationOrdered By: Aris Son on 02-24-2023 Anion gap [Moles/Vol] 10.8 mmol/L 6.0-15.0 [facility] Serum or plasma high density lipoprotein (HDL) cholesterol measurementOrdered By: Aris Son on 02-24-2023 Cholesterol in HDL [Mass/Vol] 56 mg/dL 35-85 [facility] Comment on above: HDL CHOL ATP-III CLA SSIFICATION Cardiovascular RiskHDL > or equal to 60 mg/dL LOWHDL < 40 mg/dL HIGH Serum or plasma total choles terol/high density lipoprotein (HDL) cholesterol mass ratOrdered By: Aris Son on 02-24-2023 Cholesterol.total/Choles terol in HDL [Mass ratio] 2.9 {ratio} <5.0 [facility] Sodium [Moles/volume] in Ser um or PlasmaOrdered By: Aris Son on 02-24-2023 Sodium [Moles/Vol] 137 mmol/L 136-145 [facility] Thyroid Stim Hormone w/Rflxo n 02-24-2023 Thyroid Stim Hormone w/Rflx 1.70 u[iU]/mL Normal 0.45-5.33 [facility] Comment on above: Order Comment: Reaso n for Exam Screening for heart disease Reason for Exam Annual physical exam;Screening for heart disease disease;Anxiety Result Comment: PERF ORMED BY: [facility] [address] [place] [address] PATHOLOGIST WAITER/[employer]ESS [employer]UB MARNIE GREGORY M.D. Performed By: #### C BC, TSH3 wRFLX, CMP, LIPID ####[facility] [id number] [id number] [facility] Thyrotropin [Units/volume] i n Serum or PlasmaOrdered By: Aris Son on 02-24-2023 TSH Qn 1.70 m[IU]/L 0.45-5.33 [facility] Triglyceride [Mass/volume] i n Serum or PlasmaOrdered By: Aris Son on 02-24-2023 Triglyceride [Mass/Vol] 99 mg/dL 0-149 [facility] Comment on above: TRIG ATP III CLASSIF ICATIONTRIG less than 150 mg/dL NormalTRIG 150-199 mg/dL Borderline highTRIG 200-500 mg/dL High TRIG greater than 500 mg/dL Very highStandard traceable to the Center for Disease Conrtrol and Prevention (CDC) test method. Urea nitrogen [Mass/volume] in Serum or PlasmaOrdered By: Aris Son on 02-24-2023 Urea nitrogen [Mass/Vol] 19 mg/dL 7-25 [facility] WBC Auto (Bld) [#/Vol]Ordere d By: Aris Son on 02-24-2023 WBC (Bld) [#/Vol] 3.6 10*3/uL 3.8-11.6 [facility] COVID-19 PCRon 08-08-2020 SARS-CoV-2, JULIO Not Detected Normal Not Detected [facility] Comment on above: Result Comment: This nucleic acid amplification test was developed and its performance characteristics determined by [employer]. Nucleic acid amplification tests include PCR and [...] assay. Performed By: #### C VDPCR #### [facility] [address] [place] [address] Benito Candi HEP B SURFACE ANTIGEN SCREEN on 07-29-2020 HBsAg Screen Negative Normal Negative [facility] Comment on above: Performed By: #### H BSANS #### [facility] [address] [place] [address] Benito Christopher HEPATITIS B SURFACE ANTIBODY , QUANTon 04-18-2020 Hepatitis B Surf AB Quant 5.5 mIU/mL Critically low Immunity>9.9 [facility] Comment on above: Result Comment: Stat us of Immunity Anti-HBs Level Inconsistent with Immunity 0.0 - 9.9 Consistent with Immunity >9.9 Performed By: #### [facility] #### [facility] [address] [id number] Benito Christopher SLEEP STUDYon 01-01-2020 SLEEP STUDY SLEEP STUDY Ordering Physician: Dr. Gonzalez Procedure Date: 01-01-20 CLINICAL HISTORY: This is [...] depression. 3. Please correlate clinically. Normal [facility] Vital Signs Date Time Vital Sign Value Performing Clinician Facility 01-01-2024 09:040 Body height 157.48 cm Services [employer] Work Phone: [facility] 01-01-2024 09:270400 Body mass index (BMI) [Ratio] 25.6 kg/m2 Services [facility] Phone: [facility] 01-01-2024 09:27040 Body temperature 97.2 [degF] Services [facility] Phone: [facility] 01-01-2024 09:270400 Body weight 63.5 kg Services [facility] [employer] Phone: [facility] 01-01-2024 09:27-0400 Diastolic blood pressure 80 mm[Hg] [facility] Work Phone: [facility] 01-01-2024 09:27-0400 Heart rate 62 /min [facility] Work Phone: [facility] 01-01-2024 09:27-0400 SaO2% (BldA) [Mass fraction] 99 % [facility] Work Phone: [facility] 01-01-2024 09:27-0400 Systolic blood pressure 110 mm[Hg] [facility] Work Phone: [facility] 12-15-2023 13:44-0500 Diastolic blood pressure 73 mm[Hg] [facility] Work Phone: [facility] 12-15-2023 13:44-0500 Heart rate 58 /min [facility] Work Phone: [facility] 12-15-2023 13:44-0500 Respiratory rate 20 /min [facility] Work Phone: [facility] 12-15-2023 13:44-0500 SaO2% (BldA) [Mass fraction] 100 % Services [facility] Work Phone: [facility] 12-15-2023 13:44-0500 Systolic blood pressure 109 mm[Hg] [facility] Work Phone: [facility] 12-15-2023 10:36-0500 Body height 167.64 cm Services [facility] Work Phone: [facility] 12-15-2023 10:36-0500 Body weight 76 kg Services [facility] Work Phone: [facility] 12-15-2023 10:35-0500 Body temperature 98.4 [degF] Services [facility] Work Phone: [facility] 11-13-2023 09:00-0500 Body height 157.48 cm Devyn Daniels Other [facility] 11-13-2023 09:00-0500 Body mass index (BMI) [Ratio] 31.09 kg/m2 Devyn Buehrer Other [employer] Other 11-13-2023 09:00-0500 Body temperature 97.1 [degF] Devyn Buehrer Other [employer] Other 11-13-2023 09:00-0500 Body weight 77.11 kg Devyn Rodriguezehrer Other [facility] 11-13-2023 09:00-0500 Diastolic blood pressure 62 mm[Hg] Devyn Buehrer Other [facility] 11-13-2023 09:00-0500 SaO2% (BldA) [Mass fraction] 98 % Devyn Buehrer Other [place] [employer] Other 11-13-2023 09:00-0500 Systolic blood pressure 100 mm[Hg] Devyn Buehrer Other [facility] 08-01-2023 09:15-0400 Body height 157.48 cm Devyn Kimrer Other [employer] Other 08-01-2023 09:15-0400 Body mass index (BMI) [Ratio] 31.09 kg/m2 Devyn Buehrer Other [employer] Other 08-01-2023 09:15-0400 Body temperature 97.3 [degF] Devyn Buehrer Other [employer] Other 08-01-2023 09:15-0400 Body weight 77.11 kg Devyn Rodriguezehrer Other [employer] Other 08-01-2023 09:15-0400 Diastolic blood pressure 68 mm[Hg] Devyn Franciscolorena Other [employer] Other 08-01-2023 09:15-0400 SaO2% (BldA) [Mass fraction] 99 % Devyn Daniels Other [employer] Other 08-01-2023 09:15-0400 Systolic blood pressure 114 mm[Hg] Devyn Franciscolorena Other [employer] Other Encounters Encounter Date Encounter Type Care Provider Facility Start: 01-01-2024 End: 01-01-2024 ambulatory [facility] Work Phone: [facility] Work Phone: Start: 01-01-2024 End: 01-01-2024 Patient encounter procedure [facility] Work Phone: [facility] Work Phone: Start: 12-20-2023 End: 12-20-2023 ambulatory Devyn Daniels Facility:[facility] Start: 12-20-2023 End: 12-20-2023 Patient encounter procedure [facility] Work Phone: [facility]-Ultrasound [facility] Start: 12-15-2023 End: 12-15-2023 Emergency department patient visit Luiz Farrell Facility:[facility] Start: 12-15-2023 End: 12-15-2023 Emergency department patient visit [facility] Work Phone: [facility] Work Phone: Start: 12-15-2023 End: 12-15-2023 Patient encounter procedure Services [facility] Work Phone: [facility] Work Phone: Start: 11-13-2023 End: 11-13-2023 ambulatory Devyn Daniels Other [employer] Other Start: 11-13-2023 Office outpatient vi sit 25 minutes Devyn Daniels [facility] Start: 11-13-2023 End: 11-13-2023 Patient encounter procedure Services [facility] Work Phone: [facility]- Start: 10-10-2023 End: 10-10-2023 ambulatory Devyn Daniels Facility:[facility] Start: 10-10-2023 End: 10-10-2023 ambulatory Services [facility] Work Phone: [facility] Work Phone: Start: 10-10-2023 End: 10-10-2023 Patient encounter procedure Services [facility] Work Phone: [facility] C[facility]-Ultrasound [facility] Start: 10-06-2023 (EVLT) EVLT saphenou s vein ablation Devyn Daniels [facility] V[facility] Surgery Start: 10-06-2023 End: 10-06-2023 ambulatory Devyn Daniels Other [employer] Other Start: 08-01-2023 End: 08-01-2023 ambulatory Devyn Daniels Other [employer] Other Start: 08-01-2023 Office outpatient vi sit 25 minutes Devyn Daniels [facility] Start: 07-27-2023 End: 07-27-2023 ambulatory Lisset Orellana Facility:[facility] Start: 07-27-2023 End: 07-27-2023 ambulatory Services [facility] Work Phone: [facility] Work Phone: Start: 07-27-2023 End: 07-27-2023 Patient encounter procedure Services [facility] Work Phone: [facility] [place] Work Phone: Start: 02-24-2023 End: 02-24-2023 ambulatory Ivan Yolanda Facility:[facility] Start: 02-24-2023 End: 02-24-2023 ambulatory Services [facility] Work Phone: [facility] Work Phone: Start: 02-24-2023 End: 02-24-2023 Departed Referred Services [facility] Work Phone: [facility] Start: 12-14-2020 Patient encounter procedure CARMELO MEAGHAN Facility:[facility] Start: 08-07-2020 End: 08-08-2020 Patient encounter procedure DOCTOR MISC Facility:[facility] Start: 07-28-2020 End: 07-28-2020 Patient encounter procedure CARMELO MEAGHAN Facility:[facility] Start: 04-16-2020 End: 04-16-2020 Patient encounter procedure DOCTOR MISC Facility:[facility] Start: 01-01-2020 End: 01-02-2020 Patient encounter procedure DELGADO GONZALEZ Facility:[facility] Start: 07-13-2004 Evaluation and management of inpatient Services [employer] Work Phone: [facility] Work Phone: Procedures Date Procedure Procedure Detail Performing Clinician Start: 12-20-2023 Duplex scan of lower limb veins Services [employer] Work Phone: Start: 10-10-2023 Duplex scan of lower limb veins Services [employer] Phone: Start: 07-27-2023 Duplex scan of lower limb veins Services [facility] Phone: Plan of Treatment Date Care Activity Detail Author Start: 10-10-2023 Duplex scan of lower limb veins US venous duplex LE LT [facility] Start: 10-10-2023 US Lower extremity v ein - left [facility] Start: 07-27-2023 Duplex scan of lower limb veins US venous duplex LE BI [facility] Start: 07-27-2023 US Lower extremity v ein - bilateral [facility] Patient Education Fainting, Adult ED [facility] Work Phone: Patient referral [facility] Work Phone: US Lower extremity v ein - right [facility] Payers Date Payer Category Payer Self-pay [id number] 2023 Unknown [id number] 1980 Unknown [id number] 2.16.84 [id number] 1980 Unknown [id number] 2.16.84 [id number] 1980 Unknown [id number] 2.16.84 [id number] 1980 Unknown [id number] 2.16.84 [id number] 1980 Unknown [id number] 2.16.84 [id number] 1959 Self-pay [id number] 1959 Unknown [id number] Unknown MMO [id number] Unknown [employer] [id number] Unknown [id number] 2.16.8 [id number] Unknown [id number] 2.16.8 [id number] Unknown [id number] 2.16.8 [id number] Unknown [id number] 2.16.8 [id number] Unknown [id number] 2.16.8 [id number] Social History Date Type Detail Facility Start: 01-17-2019 End: 12-15-2023 Tobacco smoking status NHIS Ex-smoker (finding) [facility] Start: 1980 Sex Assigned At Female F [facility] Sex Assigned At Sex Assigned At Bir th [employer] Other Evaluation note 11-13-2023 Note Date & [...] She understands and agrees with that plan. [employer] Other Evaluation note 08-01-2023 Note Date & [...] secondary varicosities along the pretibial areas bilaterally. [employer] Other Evaluation note Note Date & Type Note Facility Evaluation note No assessment information availa ble [facility] Work Phone: Evaluation note Note Date & Type Note Facility Evaluation note No Information [facility] [employer] Other History general Narrative - Reported Note Date & Type Note Facility History general Narrative - Reported Type Medical History Migraine Medical History Depression Hospitalization History child Hospitalization History DEPRESSION AT [place] [address] [employer] Other Summary Purpose Family History Relationship Condition Age at Onset Recorded Date/T rodo father History of stroke Unknown Heart disease Unknown Hypertension Unknown Diabetes mellitus Unknown Unknown Not Specified Malignant neoplasm Unknown Family history of mental disorder Unknown Advance Directives Advance Directive Response Recorded Date/ Time Advance Directives No January 16 11:38am Advance Directive Response Recorded Date/ Time Advance Directives No January 16 10:38am Chief Complaint and Reason for Visit Chief Complaint ^Iup Annual physical exam;Screening for heart disease A Chief Complaint ^Iup i83.813 Chief Complaint ^Iup i83.813 i83.812 s/p evlt Chief Complaint ^Iup i83.812 s/p evlt 4 Wk Evlt EVLT RT LEG syncope I83.811 s/p evlt 3 WK S/P EVLT RIGHT LEG; ULTRASOUND 12/19 Additional Source Comments INFORMATION SOURCE (unrecogn ized section and content) DATE CREATED AUTHOR 10/27/2020 [facility] DATE CREATED AUTHOR AUTHOR'S ORGANIZ ATION 12/31/2023 [facility] Care Teams (unrecognized sec tion and content) Team Status: Active Member Role Status Dates Services [facility] Primary Care Provider Active Team Status: Active Member Role Status Dates Rey Pearl DO Attending Provider Active Team Status: Inactive Member Role Status Dates Services [facility] Primary Care Provider Active Ivan Guerrero DO Attending Provider Active Team Status: Inactive Member Role Status Dates Services [facility] Primary Care Provider Active MARIE Kramer Attending Provider Active Team Status: Inactive Member Role Status Dates [facility] Primary Care Provider Active Devyn Daniels MD Attending Provider Active Team Status: Active Member Role Status Dates Rey Pearl DO Attending Provider Active Sta rt: July 13, 2004 Team Status: Inactive Member Role Status Dates Services [facility] Primary Care Provider Active Start: October 10, 2023 End: October 10, 2023 Devyn Daniels MD Attending Provider Active S tart: October 10, 2023 End: October 10, 2023 Team Status: Inactive Member Role Status Dates Devyn Daniels MD Attending Provider Active S tart: November 13, 2023 End: November 13, 2023 Team Status: Inactive Member Role Status Dates Services [facility] Primary Care Provider Active Start: December 15, 2023 End: December 15, 2023 Devyn Daniels MD Attending Provider Active S tart: December 15, 2023 End: December 15, 2023 Team Status: Inactive Member Role Status Dates Luiz Farrell DO Emergency Provider Active St art: December 15, 2023 End: December 15, 2023 [facility] Primary Care Provider Active Start: December 15, 2023 End: December 15, 2023 Team Status: Inactive Member Role Status Dates Services [facility] Primary Care Provider Active Start: December 20, 2023 End: December 20, 2023 Devyn Daniels MD Attending Provider Active S tart: December 20, 2023 End: December 20, 2023 Team Status: Inactive Member Role Status Dates [facility] Primary Care Provider Active Start: January 01, 2024 End: January 01, 2024 Devyn Daniels MD Attending Provider Active S tart: January 01, 2024 End: January 01, 2024 Goals (unrecognized section and content) Goals may be documented in a n alternate sectionGoals may be documented in an alternate sectionNo InformationGoals may be documented in an alternate sectionNo InformationNo InformationGoals may be documented in an alternate section REASON FOR VISIT (unrecogniz ed section and content) GO OVER ULTRASOUND DONE AT [facility] 07/27/23, Painful varicose veinsEVLT LEFT LEG FIRST4 [...] BE BASED ON THE PRIMARY CLINICAL RECORDS. [employer] [facility]. provides no warranty or guarantee of the accuracy or completeness of information in this document.
== END 2024-03-27 07:35 | disposition home or self-care (01) ==
LOC: MRI 07:34
PROVIDERS: Visit Provider Nurse Practitioner Family
DX: S09.90XA Unspecified injury of head, initial encounter (principal)
CPT/HCPCS: 70551